=== PATIENT | male | born 1995 | race Caucasian/White ===

== ENCOUNTER 2021-06-09 16:42 | Inpatient (IN) | payer SELFPAY ==
--- NOTE | 2021-06-09 16:50 | ED_ITS ---
HPI - General Adult General: Chief complaint: Psychiatric Symptoms Stated complaint: MHE Time Seen by Provider: 06/09/21 16:43 History of Present Illness: HPI: [26]yo patient w/ hx of schizophrenia BIBA for acute onset of psychosis. 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 On arrival, the patient is AAOx3 and cooperative with my evaluation. No focal complaints of chest pain, shortness of breath, palpitations, N/V, focal GI/ complaints. Onset: unknown Duration: ongoing Location: home Severity: severe Associated symptoms: Deny chest pain, dyspnea, nausea, rash, palpitations or vomiting Review of Systems Const: Denies: fever(s) or chills Eyes: Denies: change in vision ENMT: Denies: mouth pain Card: Denies: chest pain or palpitations Resp: Denies: dyspnea or non-productive cough GI: Denies: abdominal pain, nausea, vomiting or diarrhea : Denies: dysuria Musc: Denies: extremity pain Skin/Breast: Denies: rash or new lesions Neuro: Denies: weakness in extremities Psych: Reports: mood swings, visual hallucinations and auditory hallucinations Medardo/Lymph: Denies: easy bruising PFSH ED PFSH: Medical History (Updated 06/09/21 @ 16:52 by Cheng Waldron MD) Schizophrenia Social History (Updated 06/09/21 @ 16:52 by Cheng Waldron MD) Smoking and tobacco status: former smoker Alcohol intake: unknown Substance/Drug Use: unknown Physical Exam Const: COMMON NORMALS: alert HENMT: COMMON NORMALS: atraumatic HEAD & SCALP: atraumatic MOUTH: moist mucous membranes not abnormal Eye: COMMON NORMALS: EOMs intact bilaterally and conjunctivae normal CONJUNCTIVA: Yes conjunctivae normal Neck/C-Spine: COMMON NORMALS: full ROM and supple Resp: COMMON NORMALS: normal respiratory effort and clear to auscultation bilaterally AUSCULTATION: clear to auscultation bilaterally Cardio: COMMON NORMALS: regular rate RATE: regular rate GI: COMMON NORMALS: Soft to palpation and non-tender PALPATION: Yes Soft to palpation Extremity: COMMON NORMALS: full ROM Neuro: SENSORIUM/ORIENTATION: Yes alert MOTOR EXAM: No Abnormal motor strength present and Other motor observations present (no focal motor deficits) Psych: COMMON NORMALS: negative for Normal thought process present MOOD & AFFECT: Yes elevated mood and Yes Labile affect present THOUGHT PROCESS: abnormal, incoherent and disorganized Course Vital Signs: Vital signs: Vital Signs Temperature 97.5 F L 06/09/21 17:02 Pulse Rate 97 06/09/21 17: Respiratory Rate 18 06/09/21 17:02 Blood Pressure 135/78 06/09/21 17:02 Pulse Oximetry 96 06/09/21 17:02 MDM - General Adult Medical Decision Making [26yo patient w/ hx of schizophrenia presenting for acute psychosis and inability to take care of self. Clinically the patient displays no overt toxidrome; they are well appearing, with low suspicion for toxic ingestion given history and exam. Symptoms unlikely 2/2 anemia, hypothyroidism, infection, or ICH. Workup: CBC, CMP, Lipase, salicylate/tylenol, TSH/free T4, CT head, UDS Lab findings: wnl, +marijuana in the urine, CT head negative [6:10pm] On reassessment, labs and workup wnl. Patient is hemodynamically stable with no acute medical complaints. Case discussed with psychiatric provider Dr. Goncalves at [facility] psych inpatient with recommendation for admission Disposition: Psych Lab Data : 06/09/21 17:26 06/09/21 17: Radiology Impressions Head CT 06/09/21 16:50 IMPRESSION: 1. No acute abnormality of the brain. 2. Findings consistent with an arachnoid cyst between the left temporal and left frontal lobes. Laboratory Results WBC 10.7 10^3/uL (4.0-10.0) H 06/09/21 17: RBC 5.68 10^6/uL (4.1-5.3) H 06/09/21 17: Hgb 16.8 g/dL (11.7-16.6) H 06/09/21: Hct 49.6 % (42.0-52.0) 06/09/21 17: MCV 87.3 fl (80-94) 06/09/21 17: MCH 29.6 pg (28.0-34.0) 06/09/21 17: MCHC 33.9 g/dL (30.0-36.0) 06/09/21 17: RDW 12.4 % (12.1-15.1) 06/09/21 17: Plt Count 226 10^3/cmm (130-400) 06/09/21 17: MPV 9.1 fL (7.4-10.4) 06/09/21 17: Neut % (Auto) 82.8 % 06/09/21 17: Lymph % (Auto) 9.2 % 06/09/21 17: Yuba % (Auto) 5.8 % 06/09/21 17: Eos % (Auto) 1.1 % 06/09/21 17: Baso % (Auto) 0.7 % 06/09/21 17: Neut # (Auto) 8.84 10^3/uL (1.8-7.7) H 06/09/21 17: Lymph # (Auto) 1.0 10^3/uL (0.8-4.8) 06/09/21 17: Yuba # (Auto) 0.6 10^3/uL (0.2-0.9) 06/09/21 17: Eos # (Auto) 0.1 10^3/uL (0.0-0.8) 06/09/21 17: Baso # (Auto) 0.1 10^3/uL (0.0-0.1) 06/09/21 17: Nucleated RBC % (auto) 0 % 06/09/21 17: Nucleated RBCs # 0.0 /100WBC 06/09/21 17: Sodium 141 mmol/L (136-145) 06/09/21 17: Potassium 3.7 mmol/L (3.5-5.1) 06/09/21 17: Chloride 102 mmol/L (98-107) 06/09/21 17: Carbon Dioxide 24 mmol/L (22-29) 06/09/21 17: Anion Gap 18.7 (5-19) 06/09/21 17: BUN 18 mg/dL (6-20) 06/09/21 17: Creatinine 1.2 mg/dL (0.7-1.2) 06/09/21 17: GFR Calculation 72.1 mL/min (90-130) L 06/09/21 17: Glucose 90 mg/dL (65-115) 06/09/21 17: Calculated Osmolality 293 mOsm/kg (285-295) 06/09/21 17: Calcium 10.3 mg/dL (8.5-10.5) 06/09/21 17: Total Bilirubin 0.8 mg/dL (0.15-1.2) 06/09/21: AST 12 U/L (0-40) 06/09/21 17: ALT 9 U/L (0-41) 06/09/21 17: Alkaline Phosphatase 96 IU/L (40-130) 06/09/21 17: Total Protein 7.5 g/dL (6.6-8.7) 06/09/21 17: Albumin 5.1 g/dL (3.5-5.2) 06/09/21: Globulin 2.4 g/dL (1.3-4.6) 06/09/21: Lipase 12 U/L (13-60) L 06/09/21 17: TSH 2.08 uIU/mL (0.27-4.20) 06/09/21 17: Free T4 1.46 ng/dL (0.82-1.77) 06/09/21: Salicylates 0.9 mg/dL (3-10) L 06/09/21 17:26 Urine Opiates Screen Negative ng/mL (Negative) 06/09/21 17:05 Acetaminophen < 5.0 ug/mL (10-30) L 06/09/21 17:26 Ur Barbiturates Screen Negative ng/mL (Negative) 06/09/21 17:05 Ur Phencyclidine Scrn Negative ng/mL (Negative) 06/09/21 17:05 Ur Amphetamines Screen Negative ng/mL (Negative) 06/09/21 17:05 U Benzodiazepines Scrn Negative ng/mL (Negative) 06/09/21 17:05 Urine Cocaine Screen Negative ng/mL (Negative) 06/09/21 17:05 U Marijuana (THC) Screen Positive ng/mL (Negative) H 06/09/21 17:05 Imaging Data Other Imaging: [facility]'s impression: [facility] [address] [facility] [place] [address] CT Scan Report Signed Patient: Peterson Pavon Unit #: [id number] : 1995 Age/Sex: 26 / M ADM Date: 06/09/21 Loc: ER Room/Bed: Attending Dr: Ordering Provider/Ordering MD: Cheng Waldron MD Date of Service: 06/09/21 Procedure(s): CT head wo con* [id number] Accession Number(s): [id number] Report Number: [id number] PROCEDURE INFORMATION: Exam: CT Head Without Contrast Exam date and time: 06/09/2021 4:50 PM Age: 26 years old Clinical indication: Altered mental status/memory loss; Other: Psychosis TECHNIQUE: Imaging protocol: Computed tomography of the head without contrast. Sagittal and coronal reformatted images were created and reviewed. Radiation optimization: All CT scans at this facility use at least one of these dose optimization techniques: automated exposure control; mA and/or kV adjustment per patient size (includes targeted exams where dose is matched to clinical indication); or iterative reconstruction. COMPARISON: No relevant prior studies available. RADIATION DOSE METRICS: Total DLP (mGy-cm): 921.71 FINDINGS: Brain: No acute intracranial hemorrhage. No acute infarct. Low-density extra-axial focus between the left temporal and left frontal lobes. Findings are consistent with an arachnoid cyst. This measures 2.4 x 2.2 x 2.1 cm (series 601, image 30 and series 2, image 20). No midline shift. No extra-axial fluid collections. Acosta-white matter differentiation is unremarkable. Cerebral ventricles: No hydrocephalus. Paranasal sinuses: Visualized paranasal sinuses are clear. Mastoid air cells: Visualized mastoid air cells are clear. Orbital cavity: No acute abnormality in the visualized orbits. Bones/joints: No acute fracture. Soft tissues: No acute abnormality of the extracranial soft tissues. CT/CT head wo con* [id number] IMPRESSION: 1. No acute abnormality of the brain. 2. Findings consistent with an arachnoid cyst between the left temporal and left frontal lobes. ? Dictated By: Veronica Benedict MD Signed By: Veronica Benedict MD Signed Date/Time: 06/09/21 175 DD/ 1650 Discharge Plan Discharge Patient Disposition: Admitted As Inpatient Clinical Impression: Psychosis Condition: Stable Coding Level of Care Code ED Settlement Worker for Kimberlyg Fwd Exam Comprehensive
[2021-06-09 17:02] VITALS: BP 135/78; PULSE 97; RESP 18; TEMP 36.4; O2SAT 96; BMI 23.7
[2021-06-09 17:40] LABS: Basophils # 0.1 10^3/uL (0.0-0.1); Basophils % 0.7 %; Eosinophils # 0.1 10^3/uL (0.0-0.8); Eosinophils % 1.1 %; Hematocrit 49.6 % (42.0-52.0); Hemoglobin 16.8 g/dL (11.7-16.6); Lymphocytes % 9.2 %; Mean Corpuscular HGB Conc 33.9 g/dL (30.0-36.0); Mean Corpuscular Hemoglobin 29.6 pg (28.0-34.0); Mean Corpuscular Volume 87.3 fl (80-94); Mean Platelet Volume 9.1 fL (7.4-10.4); Monocytes # 0.6 10^3/uL (0.2-0.9); Monocytes % 5.8 %; Neutrophils # 8.84 10^3/uL (1.8-7.7); Neutrophils % 82.8 %; Nucleated Red Blood Cells % 0 %; Platelet Count 226 10^3/cmm (130-400); Red Blood Count 5.68 10^6/uL (4.1-5.3); Red Cell Distribution Width 12.4 % (12.1-15.1); White Blood Count 10.7 10^3/uL (4.0-10.0)
[2021-06-09 18:06] LABS: Amphetamines Screen Urine Negative (Negative); Barbiturates Screen Urine Negative (Negative); Benzodiazepines Screen Urine Negative (Negative); Cocaine Screen Urine Negative (Negative); Opiate Screen Urine Negative (Negative); PCP Screen Urine Negative (Negative); THC Screen Urine Positive (Negative)
[2021-06-09] MEDS: LORazepam 2 mg/mL INJ 1 mL IM (18:10)
[2021-06-09 18:23] LABS: Alanine Aminotransferase 9 U/L (0-41); Albumin Level 5.1 g/dL (3.5-5.2); Alkaline Phosphatase 96 IU/L (40-130); Anion Gap 18.7 (5-19); Aspartate Amino Transferase 12 U/L (0-40); Blood Urea Nitrogen 18 mg/dL (6-20); Calcium 10.3 mg/dL (8.5-10.5); Carbon Dioxide 24 mmol/L (22-29); Chloride 102 mmol/L (98-107); Free T4 Free Thyroxine 1.46 ng/dL (0.82-1.77); Globulin 2.4 g/dL (1.3-4.6); Glomerular Filtration Rate 72.1 mL/min (90-130); Glucose 90 mg/dL (65-115); Lipase 12 U/L (13-60); Osmolality Calculated 293 mOsm/kg (285-295); Potassium 3.7 mmol/L (3.5-5.1); Salicylate 0.9 mg/dL (3-10); Sodium 141 mmol/L (136-145); Thyroid Stimulating Hormone 2.08 uIU/mL (0.27-4.20); Total Bilirubin 0.8 mg/dL (0.15-1.2); Total Protein 7.5 g/dL (6.6-8.7)
[2021-06-09 18:26] LABS: Acetaminophen < 5.0 ug/mL (10-30)
[2021-06-09 18:40] VITALS: BP 124/82; PULSE 82; RESP 13; O2SAT 97
[2021-06-09 19:41] VITALS: BP 119/74; PULSE 104; RESP 18; O2SAT 98
[2021-06-09] MEDS: OLANZapine 5 mg ODT PO (21:31)
[2021-06-09 22:00] VITALS: BP 119/74; PULSE 104; RESP 18; TEMP 36.4
--- NOTE | 2021-06-10 02:00 | PC.ADMIT ---
HOMELESS Admission Note:HPI: [26]yo patient w/ hx of schizophrenia BIBA for acute onset of psychosis. 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 On arrival, the patient is AAOx3 and cooperative with my evaluation. No focal complaints of chest pain, shortness of breath, palpitations, N/V, focal GI/ complaints. The patient,Peterson Pavon,26 y/o, was given written information regarding hospital policies, unit procedures and contact persons. Patient reports auditory hallucinations, history of schizophrenia, history of substance abuse. Patient denies SI, HI. Reports I am trying to figure out which Spirit the voices are. Patient has pressured speech, rambling, but cooperative. States he has been emotionally abused by the music industry, they are Satan and do not believe in Dru, they mess Bible versus up and say they are Christians . Patient's smoking status: former smoker. Vital Signs - 8 hr 06/09/21 18:40 06/09/21 19:41 06/09/21 22:00 Temperature 97.5 F L Pulse Rate 82 104 H 104 H Respiratory Rate 13 18 18 Blood Pressure 124/82 119/74 119/74 Pulse Oximetry 97 98
[2021-06-10 06:00] VITALS: RESP 16
[2021-06-10] MEDS: sertraline 50 mg Tablet 25 MG PO (10:18)
[2021-06-10 14:00] VITALS: BP 117/67; PULSE 76; RESP 18; TEMP 36.5; O2SAT 100
--- NOTE | 2021-06-10 14:36 | P.NPUHP_ITS ---
Providers/Chief Complaint Admitting Physician: Jose Goncalves MD Chief Complaint: MHE HPI NPU History of Present Illness Peterson Pavon is a 26 year old male who presented to the emergency department with the following report: Chief complaint: Psychiatric Symptoms Stated complaint: MHE Time Seen by Provider: 06/09/21 16:43 History of Present Illness:?? HPI: [26]yo patient w/ hx of schizophrenia BIBA for acute onset of psychosis. 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 Patient was belligerent with police officers and attempted to attack police superintendent with snow. On arrival, the patient is AAOx3 and cooperative with my evaluation. No focal complaints of chest pain, shortness of breath, palpitations, N/V, focal GI/ complaints. Onset: unknown Duration: ongoing Location: home Severity: severe Associated symptoms: Deny chest pain, dyspnea, nausea, rash, palpitations or vomiting He was admitted to the neuropsychiatric unit for definitive treatment of those issues. He presents today appearing quite disturbed and endorsing irritability and needing help with medication to calm down. He did take some Zyprexa Zydis for that end. He was very amped during the conversation and initially seemed to be unwilling to engage in psychopharmacology long-term. His report was that there was some issue between him and the pentecostal and that he is aware of issues that they have including the illuminati. He reports that somehow in the process he was diagnosed with schizophrenia but that would be suffering from is a very intense spiritual problem and less a psychiatric problem. He expressed anger at the pentecostal because when he feels he has tried to talk to them about what he needs in the spiritual discoveries made they have supported him only by suggesting that he go to a psychiatric facility and get help. He endorsed being unaware if there is anything that can be done to help him. And because of the level of spiritual problems that he was unsure that anything other than a very strong medication could have a chance to help him. He spent most of the interview referring to different scriptures and sharing their meaning and any id eas or delusions of reference that he had surrounding those scriptures. His heavy focus on islam connectivity made it difficult for him to break away to answer questions of his personal history with any consistency. He did share that at times he got so worked up from the pentecostal and the thoughts that he was having that he did drink to cope with the mental anguish. Meds NPU Home Medications Medication Instructions Recorded Confirmed Last Taken Type calcipotriene 0.005 % topical See Rx Instructions .ROUTE .COMPLEX 06/09/21 06/09/21 Unknown History cream (Dovonex) sertraline 25 mg tablet 25 mg PO DAILY 06/09/21 06/09/21 Unknown History Allergies Allergy/AdvReac Type Severity Reaction Status Date / Time No Known Allergies Allergy Verified 06/10/21 17:24 PFSH NPU PFSH: Medical History (Updated 06/11/21 @ 07:18 by Jose Goncalves MD) Schizophrenia Social History (Updated 06/09/21 @ 16:52 by Cheng Waldron MD) Smoking and tobacco status: former smoker Alcohol intake: unknown Substance/Drug Use: unknown Mental Status Exam MSE Comments: This is a tall slender well-nourished well-developed white male in hospital scrubs with limited grooming but adequate eye contact. No abnormal movements except for mild psychomotor agitation. Somewhat cooperative with exam in mild to moderate distress. Speech was decreased rate and volume. Mood described as stressed out, affect congruent and guarded. Thought process organized at moments but disorganized and hyper religiously focused at others. Thought content: Patient denied suicidal or homicidal ideation, there were no delusions reported but clear hyper islam, paranoid and persecutory delusions exist, he alluded to some auditory hallucinations and or other comments that suggested some visual hallucinations. Attention and concentration were impaired and memory appeared unreliable but none were formally tested. He is alert and oriented times person and place. Insight and judgment are impaired, impulse control impaired. Vitals/I&O/Wt Last Vital Signs Temp 97.7 F 06/10/21 14:00 Pulse 76 06/10/21 14:00 Resp 18 06/10/21 14:00 BP 117/67 06/10/21 14:00 Pulse Ox 100 06/10/21 14:00 Weight last 48 hrs Weight 81.647 kg Data NPU : 06/09/21 17:26 06/09/21 17:26 A&P Assessment and plan (1) Psychosis: Status: Acute (2) History of schizophrenia: Status: Acute (3) Alcohol use disorder: Status: Acute (4) Cannabis abuse: Status: Acute Plan This is a 26-year-old white male with a reported history of schizophrenia and possible addiction issues who presents appearing psychotic but open to a trial of Invega. 1. Continue current medication. 2. Continue every 15 minute checks for safety. 3. Encourage individual, group and milieu therapies. 4. Encourage sober living treatment after discharge at the highest level of care to which he is willing to commit. Attestations NPU Medical Necessity Statement*: Inpatient hospitalization is medically necessary and the clinically appropriate intervention at this time. We will monitor medication to make changes as indicated. Patient will be in the hospital for over two midnights. Likely length of stay 4-6 days. Coding Level of Care Code Acute Bobtail Driver for Naye Keene Diagnoses Psychosis F29 History of schizophrenia Z86.59 Alcohol use disorder Cannabis abuse F12.10
[2021-06-10] MEDS: paliperidone ER 6 mg Tablet PO (17:28)
[2021-06-10] MEDS: OLANZapine 5 mg ODT PO (20:47)
[2021-06-10 22:00] VITALS: BP 125/88; PULSE 75; RESP 18; TEMP 36.6; O2SAT 98
[2021-06-11] MEDS: OLANZapine 5 mg ODT PO ×2 (04:05→20:30)
--- NOTE | 2021-06-11 04:57 | PC.NURSE ---
0405 A loud noise was heard coming from the patients room. Upon arrival to the room the patient was curled up in a position shaking under a blanket. When this mortgage loan underwriter asked the patient was wrong, he stated, That woman. I can't get her out of me. Her soul is trying to get me. She keeps yelling at me that I am no good. I can't keep hearing her voice. No one in the mormonism would believe me. I had to leave the mormonism to try to get away from them all. The Holy Spirit is in me not her. The medicine is not helping me. She won't let me be. He kept rambling with pressured speech on and on about this woman with intermittent words about God and the Holy Spirit. Zyprexa was offerred and accepted. When given the medication he again started rambling. This mortgage loan underwriter listened and then calmly shut down the talking. The patient curled up on his bed covered with his blanket.
[2021-06-11 06:00] VITALS: BP 92/59; PULSE 62; RESP 17; TEMP 36.2; O2SAT 95
[2021-06-11] MEDS: paliperidone ER 6 mg Tablet PO (09:05)
[2021-06-11] MEDS: sertraline 50 mg Tablet 25 MG PO (09:05)
--- NOTE | 2021-06-11 11:40 | P.NPUPN_ITS ---
Subjective NPU Subjective: Interval history: Patient presents today reporting that he is fine. He was much less animated and energetic today. He reported that he is not have any problems with the medication but he was fairly irritable and seeming like he did not want to answer questions. He denied having any new issues at this time. Medications: Medication Review Details: This is a tall slender well-nourished well-developed white male in hospital scrubs with limited grooming but adequate eye contact. No abnormal movements except for mild psychomotor agitation. Somewhat cooperative with exam in mild distress. Speech was decreased rate and volume. Mood described as okay, affect irritable and guarded. Thought process organized at moments but disorganized and hyper religiously focused at others. Thought content: Patient denied suicidal or homicidal ideation, there were no delusions reported but hyper restoration, paranoid and persecutory delusions exist, he alluded to some auditory hallucinations and or other comments that suggested some visual hallucinations. Attention and concentration were impaired and memory appeared unreliable but none were formally tested. He is alert and oriented times person and place. Insight and judgment are impaired, impulse control impaired. Vitals/I&O/Wt Last Vital Signs Temp 97.1 F L 06/11/21 06:00 Pulse 62 06/11/21 06:00 Resp 17 06/11/21 06:00 BP 92/59 06/11/21 06:00 Pulse Ox 95 06/11/21 06:00 Weight last 48 hrs Weight 75.75 kg Weight 81.647 kg Data NPU : 06/09/21 17:26 06/09/21 17:26 A&P Assessment and plan (1) Cannabis abuse: Status: Acute (2) Alcohol use disorder: Status: Acute (3) History of schizophrenia: Status: Acute (4) Psychosis: Status: Acute Plan This is a 26-year-old white male with a reported history of schizophrenia and possible addiction issues who presents appearing psychotic but open to a trial of Invega. 1.? Continue current medication. 2.? Continue every 15 minute checks for safety. 3.? Encourage individual, group and milieu therapies. 4.? Encourage sober living treatment after discharge at the highest level of care to which he is willing to commit. Attestations NPU Medical Necessity Statement*: Inpatient hospitalization is medically necessary and the clinically appropriate intervention at this time. We will monitor medication to make changes as indicated. Likely length of stay 4-6 days. Coding Level of Care Code Acute Supervisor Securities Vault for Chg Fwd Diagnoses Cannabis abuse F12.10 Alcohol use disorder History of schizophrenia Z86.59 Psychosis F29
[2021-06-11 14:00] VITALS: BP 110/66; PULSE 71; RESP 16; TEMP 36.6; O2SAT 96
[2021-06-11 20:19] VITALS: BP 148/93; PULSE 70; RESP 19; TEMP 37; O2SAT 98
[2021-06-12 06:00] VITALS: BP 119/84; PULSE 91; RESP 20; TEMP 36.8; O2SAT 97
[2021-06-12] MEDS: paliperidone ER 6 mg Tablet PO (09:22)
[2021-06-12] MEDS: sertraline 50 mg Tablet 25 MG PO (09:22)
[2021-06-12 14:00] VITALS: BP 126/95; PULSE 110; RESP 20; TEMP 36.4; O2SAT 95
--- NOTE | 2021-06-12 17:50 | W.PM.NPUPNS ---
Subjective NPU Subjective: Interval history: Patient presented today reporting that he is feeling a little better. He denied any problems with the medication at this point. He was fairly all over the place talking about his mother not allowing him to stay with her and him being homeless but then trying to get discharged but then later saying that he did know where he would go because he is homeless. We had a long conversation about trying to hopefully stabilize him with the medication and maybe use the social work team to help him find some options for where he is going to live when he leaves the hospital. He was lobbying for ending the 96-hour hold early but agreed that he would stay on top more while we figure these things out. Mental Status Exam MSE Comments: This is a tall slender well-nourished well-developed white male in hospital scrubs with limited grooming but adequate eye contact. No abnormal movements except for mild psychomotor agitation. Somewhat cooperative with exam in mild distress. Speech was decreased rate and volume. Mood described as a little better, affect congruent but guarded. Thought process more organized and less disorganized and hyper religiously focused at others. Thought content: Patient denied suicidal or homicidal ideation, there were no delusions reported but occasional hyper restorationist, paranoid and persecutory delusions are still noted, he alluded to some auditory hallucinations and or other comments that suggested some visual hallucinations. Attention and concentration were impaired and memory appeared more reliable but none were formally tested. He is alert and oriented times person and place. Insight and judgment are impaired, impulse control impaired. Vitals/I&O/Wt Last Vital Signs Temp 97.7 F 06/12/21 20:09 Pulse 88 06/12/21 20:09 Resp 20 H 06/12/21 20:09 BP 151/68 06/12/21 20:09 Pulse Ox 99 06/12/21 20:09 Weight last 48 hrs Weight 75.75 kg Data NPU : 06/09/21 17:26 06/09/21 17:26 A&P Assessment and plan (1) Cannabis abuse: Status: Acute (2) Alcohol use disorder: Status: Acute (3) History of schizophrenia: Status: Acute (4) Psychosis: Status: Acute Plan This is a 26-year-old white male with a reported history of schizophrenia and possible addiction issues who presents appearing psychotic but open to a trial of Invega. 1.? Continue current medication. Will encourage transition to Invega Sustenna. 2.? Continue every 15 minute checks for safety. 3.? Encourage individual, group and milieu therapies. 4.? Encourage sober living treatment after discharge at the highest level of care to which he is willing to commit. Attestations NPU Medical Necessity Statement*: Inpatient hospitalization is medically necessary and the clinically appropriate intervention at this time. We will monitor medication to make changes as indicated. Likely length of stay 3-5 days. Coding Level of Care Code Acute Marketing Manager for [facility] Diagnoses Cannabis abuse F12.10 Alcohol use disorder History of schizophrenia Z86.59 Psychosis F29
[2021-06-12] MEDS: trazodone 50 mg Tablet PO (19:45)
[2021-06-12 20:09] VITALS: BP 151/68; PULSE 88; RESP 20; TEMP 36.5; O2SAT 99
[2021-06-13] MEDS: OLANZapine 5 mg ODT PO ×2 (00:32→16:54)
--- NOTE | 2021-06-13 01:51 | PC.NURSE ---
Patient took Trazodone 50mg po to help him sleep. At 00:30 patient was still awake. At 01:30 patient came to the nurse's station asking for water. When asked if he could sleep he responded, no. He said the voices will not let me sleep. 00:32 Zyprexa 5 mg po given to calm him and the voices. Now the patient is resting comfortably.
--- NOTE | 2021-06-13 04:33 | PC.NURSE ---
At this time the patient is sleeping. It took a couple of hours for him to fall asleep even with the Trazodone followed by the Zyprexa.
[2021-06-13 06:00] VITALS: RESP 18
[2021-06-13] MEDS: paliperidone ER 6 mg Tablet PO (08:16)
[2021-06-13] MEDS: sertraline 50 mg Tablet 25 MG PO (08:16)
[2021-06-13 14:00] VITALS: BP 117/76; PULSE 113; RESP 18; TEMP 36.8; O2SAT 98
--- NOTE | 2021-06-13 17:42 | W.PM.NPUPNS ---
Subjective NPU Subjective: Interval history: Patient presents today reporting that he is really getting antsy being here in the hospital. He denies any lethality but also identifies that he does not have a clear place to go but is working with the social work team for options. He reported that his mom is going to bring his ID and such so that he might have the option of being in a senior living. He reports that he certainly feels calmer and we both agreed and discussed that the medication is likely being very helpful. We discussed the possibility of a long-acting injectable which he was somewhat resistant to versus ambivalent. We discussed the possibility of discharge in the next 48 hours as well as the chance for 21-day hold which he was not happy about. Mental Status Exam MSE Comments: This is a tall slender well-nourished well-developed white male in hospital scrubs with adequate grooming and eye contact. No abnormal movements except for mild psychomotor retardation. More cooperative with exam in mild distress. Speech was decreased rate and volume. Mood described as a little better, affect congruent but guarded. Thought process more organized. Thought content: Patient denied suicidal or homicidal ideation, there were no delusions reported and no hyper christianity, paranoid and persecutory delusions are noted during interview. He did not report auditory or visual hallucinations. Attention and concentration were improving and memory appeared more reliable but none were formally tested. He is alert and oriented times person and place. Insight and judgment are limited, impulse control impaired. Vitals/I&O/Wt Last Vital Signs Temp 97.6 F 06/13/21 21:14 Pulse 93 06/13/21 21:14 Resp 20 H 06/13/21 21:14 BP 119/83 06/13/21 21:14 Pulse Ox 95 06/13/21 21:14 Data NPU : 06/09/21 17:26 06/09/21 17:26 A&P Assessment and plan (1) Cannabis abuse: Status: Acute (2) Alcohol use disorder: Status: Acute (3) History of schizophrenia: Status: Acute (4) Psychosis: Status: Acute Plan This is a 26-year-old white male with a reported history of schizophrenia and possible addiction issues who presents appearing psychotic but open to a trial of Invega. 1.? Continue current medication.? Will encourage transition to Invega Sustenna. 2.? Continue every 15 minute checks for safety. 3.? Encourage individual, group and milieu therapies. 4.? Encourage sober living treatment after discharge at the highest level of care to which he is willing to commit. Attestations NPU Medical Necessity Statement*: Inpatient hospitalization is medically necessary and the clinically appropriate intervention at this time. We will monitor medication to make changes as indicated. Likely length of stay 2-4 days. Coding Level of Care Code Acute Wildlife Enforcement Major for [facility]ulu [facility] Diagnoses Cannabis abuse F12.10 Alcohol use disorder History of schizophrenia Z86.59 Psychosis F29
[2021-06-13] MEDS: trazodone 50 mg Tablet PO (20:43)
[2021-06-13 21:14] VITALS: BP 119/83; PULSE 93; RESP 20; TEMP 36.4; O2SAT 95
[2021-06-14 06:00] VITALS: BP 122/75; PULSE 108; RESP 17; TEMP 36.9; O2SAT 98
[2021-06-14] MEDS: sertraline 50 mg Tablet 25 MG PO (08:20)
[2021-06-14] MEDS: paliperidone ER 6 mg Tablet PO (08:20)
[2021-06-14 14:00] VITALS: BP 111/70; PULSE 119; RESP 18; TEMP 36.7; O2SAT 96
--- NOTE | 2021-06-14 18:56 | P.NPUPN_ITS ---
Subjective NPU Subjective: Interval history: Patient presents today reporting that he is feeling a little better. His mother came by and reported that she has a plan to assist him but he is willing to follow through with the divorce ongoing to a family member's house where she can check in on him. Continue to discuss the plan for the injection but he seemed to be more reluctant and feeling as if the fact that his CT scan is back but I find that he did have any problems demonstrating his very impaired insight. Mental Status Exam MSE Comments: This is a tall slender well-nourished well-developed white male in hospital scrubs with adequate grooming and eye contact. No abnormal movements except for mild psychomotor retardation.? More cooperative with exam in mild distress. Speech was decreased rate and volume. Mood described as a little better, affect congruent but guarded. Thought process more organized. Thought content: Patient denied suicidal or homicidal ideation, there were no delusions reported and no hyper zoroastrian, paranoid and persecutory delusions are noted during interview.? He did not report auditory or visual hallucinations. Attention and concentration were improving and memory appeared more reliable but none were formally tested. He is alert and oriented times person and place. Insight and judgment are impaired, impulse control impaired. Vitals/I&O/Wt Last Vital Signs Temp 98 F 06/14/21 22:00 Pulse 90 06/14/21 22:00 Resp 17 06/14/21 22:00 BP 121/77 06/14/21 22:00 Pulse Ox 95 06/14/21 22:00 Data NPU : 06/09/21 17:26 06/09/21 17:26 A&P Assessment and plan (1) Cannabis abuse: Status: Acute (2) Alcohol use disorder: Status: Acute (3) History of schizophrenia: Status: Acute (4) Psychosis: Status: Acute Plan This is a 26-year-old white male with a reported history of schizophrenia and possible addiction issues who presents appearing psychotic but open to a trial of Invega. 1.? Continue current medication.? Will encourage transition to Invega Sustenna. 2.? Continue every 15 minute checks for safety. 3.? Encourage individual, group and milieu therapies. 4.? Encourage sober living treatment after discharge at the highest level of care to which he is willing to commit. Attestations NPU Medical Necessity Statement*: Inpatient hospitalization is medically necessary and the clinically appropriate intervention at this time. We will monitor medication to make changes as indicated. Likely length of stay 1-3 days. Coding Level of Care Code Acute Integrated Logistics Support Manager for [facility] Fwd Diagnoses Cannabis abuse F12.10 Alcohol use disorder History of schizophrenia Z86.59 Psychosis F29
[2021-06-14] MEDS: OLANZapine 5 mg ODT PO (20:33)
--- NOTE | 2021-06-14 21:55 | PC.NURSE ---
Patient wanted medication to help him sleep. Zyprexa worked very well last night so he wanted the same thing. Zyprexa was given
[2021-06-14 22:00] VITALS: BP 121/77; PULSE 90; RESP 17; TEMP 36.6; O2SAT 95
[2021-06-15 06:00] VITALS: BP 115/74; PULSE 96; RESP 20; TEMP 36.4; O2SAT 97
[2021-06-15] MEDS: paliperidone ER 6 mg Tablet PO (08:51)
[2021-06-15] MEDS: sertraline 50 mg Tablet 25 MG PO (08:51)
--- NOTE | 2021-06-15 09:08 | PC.NURSE ---
PATIENTS MOM HERE TO PICK PATIENT UP. REPORTS THAT THIS PATIENTS DAD WAS BELIEVED TO HAVE SCHIZOPHRENIA. SHE HIM WHEN PATIENT WAS 3. STATES SHE FEELS HER SON IS TUENING INTO HIM. MOM IS GLAD HE IS GOING HOME WITH HER. SHE HOPES THAT HE DOES WELL
[2021-06-15] MEDS: paliperidone palmitate 234 mg Syringe IM (09:54)
--- NOTE | 2021-06-15 10:02 | W.PM.NPUDCS ---
Diagnoses at Discharge Discharge Diagnosis (1) Cannabis abuse: Status: Acute (2) Alcohol use disorder: Status: Acute (3) History of schizophrenia: Status: Acute (4) Psychosis: Status: Acute Reason for Visit Reason for Visit: MHE Brief History: History of Present Illness Peterson Pavon is a 26 year old male who presented to the emergency department with the following report: Chief complaint: P sychiatric Symptom s Stated complaint : MHE Time Seen by Provider: 2 16:43? ? History of Present Illness:??? HPI: [26]yo patien t w/ hx of schizop hrenia BIBA for ac talha onset of psych osis. Patient rece ived a wellness ch blake from police to day and was found to be severely con fused and claiming , the music indus try is controlled by Satan. Patient was belligerent w ith police superintendent s and attempted to attack police off icer with snow. On arrival, the roseann ent is AAOx3 and c ooperative with my evaluation. No fo piper complaints of chest pain, shortn ess of breath, pal pitations, N/V, fo piper GI/ complain ts. Onset: unknown Duration: ongoing Location: home Se verity: severe Ass ociated symptoms: Deny chest pain, d yspnea, nausea, ra sh, palpitations o r vomiting He was admitted to the neuropsychiatric unit for definitive treatment of those issues. He presents today appearing quite disturbed and endorsing irritability and needing help with medication to calm down. He did take some Zyprexa Zydis for that end. He was very amped during the conversation and initially seemed to be unwilling to engage in psychopharmacology long-term. His report was that there was some issue between him and the hindu and that he is aware of issues that they have including the illuminati. He reports that somehow in the process he was diagnosed with schizophrenia but that would be suffering from is a very intense spiritual problem and less a psychiatric problem. He expressed anger at the hindu because when he feels he has tried to talk to them about what he needs in the spiritual discoveries made they have supported him only by suggesting that he go to a psychiatric facility and get help. He endorsed being unaware if there is anything that can be done to help him. And because of the level of spiritual problems that he was unsure that anything other than a very strong medication could have a chance to help him. He spent most of the interview referring to different scriptures and sharing their meaning and any ideas or delusions of reference that he had surrounding those scriptures. His heavy focus on uatsdin connectivity made it difficult for him to break away to answer questions of his personal history with any consistency. He did share that at times he got so worked up from the hindu and the thoughts that he was having that he did drink to cope with the mental anguish. Hospital Course Hospital Course He very slowly acclimated to the individual, group and milieu therapies provided. He did eventually accept medication and ultimately with coaxing from his mother for the opportunity to have a place to go and was safe he did except a long-acting injectable and showed significant improvement during the hospitalization. At the time of discharge he was able to contract for safety outside the hospital. During the hospitalization, patient had routine laboratory studies which were within normal limits except for few outliers. Additionally there was a general medical evaluation which was also within normal limits and revealed no new acute processes. Discharge Summary: At the time of discharge, lethality was denied and psychosis was resolving. Mood and anxiety were well managed. Patient endorsed a plan to avoid all drugs of abuse and follow-up with the aftercare recommendations of the treatment team. Patient was evaluated and deemed to be absent credible lethality, and had achieved the maximum benefit from an inpatient hospitalization, so was discharged. Mental Status Exam MSE Comments: This is a tall slender well-nourished well-developed white male in hospital scrubs with adequate grooming and eye contact. No abnormal movements except for mild psychomotor retardation.? More cooperative with exam in mild distress. Speech was decreased rate and volume. Mood described as a little better, affect congruent and less guarded. Thought process more organized. Thought content: Patient denied suicidal or homicidal ideation, there were no delusions reported and no hyper uatsdin, paranoid and persecutory delusions are noted during interview.? He did not report auditory or visual hallucinations. Attention and concentration were improving and memory appeared more reliable but none were formally tested. He is alert and oriented times person and place. Insight and judgment are limited, impulse control impaired. Discharge Data Studies Completed and Pending: Completed Studies During Hospitalization Category Date Time Status CT head wo con* 7 [id number] Urgent Cat Scan 06/09/21 16:50 Completed Radiology Impressions Head CT 06/09/21 16:50 IMPRESSION: 1. No acute abnormality of the brain. 2. Findings consistent with an arachnoid cyst between the left temporal and left frontal lobes. Laboratory Results WBC 10.7 10^3/uL (4.0 -10.0) H 06/09/21 17: RBC 5.68 10^6/uL (4.1 -5.3) H 06/09/21 17: Hgb 16.8 g/dL (11.7-1 6.6) H 06/09/21 17: Hct 49.6 % (42.0-52.0 ) 06/09/21 17: MCV 87.3 fl (80-94) 06/09/21 17: MCH 29.6 pg (28.0-34. 0) 06/09/21: MCHC 33.9 g/dL (30.0-3 6.0) 06/09/21: RDW 12.4 % (12.1-15.1 ) 06/09/21: Plt Count 226 10^3/cmm (130 -400) 06/09/21 17: MPV 9.1 fL (7.4-10.4) 06/09/21 17: Neut % (Auto) 82.8 % 06/09/21 17: Lymph % (Auto) 9.2 % 06/09/21 17: [place] % (Auto) 5.8 % 06/09/21: Eos % (Auto) 1.1 % 06/09/21: Baso % (Auto) 0.7 % 06/09/21: Neut # (Auto) 8.84 10^3/uL (1.8 -7.7) H 06/09/21 17: Lymph # (Auto) 1.0 10^3/uL (0.8- 4.8) 06/09/21: [place] # (Auto) 0.6 10^3/uL (0.2- 0.9) 06/09/21 17: Eos # (Auto) 0.1 10^3/uL (0.0- 0.8) 06/09/21: Baso # (Auto) 0.1 10^3/uL (0.0- 0.1) 06/09/21 17: Nucleated RBC % (a uto) 0 % 06/09/21 17: Nucleated RBCs # 0.0 /100WBC 06/09/21 17: Sodium 141 mmol/L (136-1 45) 06/09/21 17: Potassium 3.7 mmol/L (3.5-5 .1) 06/09/21 17: Chloride 102 mmol/L (98-10 7) 06/09/21 17: Carbon Dioxide 24 mmol/L (22-29) 06/09/21 17: Anion Gap 18.7 (5-19) 06/09/21 17: BUN 18 mg/dL (6-20) 06/09/21: Creatinine 1.2 mg/dL (0.7-1. 2) 06/09/21 17: GFR Calculation 72.1 mL/min (90-1 30) L 06/09/21 17: Glucose 90 mg/dL (65-115) 06/09/21 17: Calculated Osmolal ity 293 mOsm/kg (285- 295) 06/09/21 17: Calcium 10.3 mg/dL (8.5-1 0.5) 06/09/21: Total Bilirubin 0.8 mg/dL (0.15-1 .2) 06/09/21 17: AST 12 U/L (0-40) 06/09/21 17: ALT 9 U/L (0-41) 06/09/21 17: Alkaline Phosphata se 96 IU/L (40-130) 06/09/21 17: Total Protein 7.5 g/dL (6.6-8.7 ) 06/09/21 17: Albumin 5.1 g/dL (3.5-5.2 ) 06/09/21 17: Globulin 2.4 g/dL (1.3-4.6 ) 06/09/21: Lipase 12 U/L (13-60) L 06/09/21 17: TSH 2.08 uIU/mL (0.27 -4.20) 06/09/21 17: Free T4 1.46 ng/dL (0.82- 1.77) 06/09/21: Salicylates 0.9 mg/dL (3-10) L 06/09/21 17:26 Urine Opiates Scre en Negative ng/mL (N egative) 06/09/21 17:05 Acetaminophen < 5.0 ug/mL (10-3 0) L 06/09/21 17:26 Ur Barbiturates Sc reen Negative ng/mL (N egative) 06/09/21 17:05 Ur Phencyclidine S crn Negative ng/mL (N egative) 06/09/21 17:05 Ur Amphetamines Sc reen Negative ng/mL (N egative) 06/09/21 17:05 U Benzodiazepines Scrn Negative ng/mL (N egative) 06/09/21 17:05 Urine Cocaine Scre en Negative ng/mL (N egative) 06/09/21 17:05 U Marijuana (THC) Screen Positive ng/mL (N egative) H 06/09/21 17:05 Vitals: Last Vital Signs Temp 97.5 F L 06/15/21 06:00 Pulse 96 06/15/21 06:00 Resp 20 H 06/15/21 06:00 BP 115/74 06/15/21 06:00 Pulse Ox 97 06/15/21 06:00 Discharge Plan Discharge Patient Disposition: Home Condition: Stable Prescriptions: New Invega Sustenna 156 mg/mL syringe 156 mg IM Q30D 30 Days Qty: 1 2RF Rx Instructions: Next injection 06/22/21 IM deltoid. Then 07/20/21 IM and every 30 days after. sertraline 50 mg Tablet 25 mg PO DAILY 30 Days Qty: 30 1RF Continued Dovonex 0.005 % cream See Rx Instructions .ROUTE .COMPLEX 0RF Rx Instructions: apply to affected area sertraline 25 mg tablet 25 mg PO DAILY 30 Days Qty: 30 1RF Discharge Orders: Discharge Order (Routine); Ordered 06/15/21 Ordered By: Jose Goncalves Referrals: [facility]-Medication Provider [Other] - 06/16/21 11:00 am [facility]-therapy [Other] - 06/16/21 10:15 am ([facility] [Other] Discharge Diet: Regular Discharge Activity: Resume usual activity Patient Instructions: Opioid Safety Discharge Attestations NPU Time Spent in Discharge Care*: less than 30 min Specific Discharge Activities: Specific discharge activities: educating patient, discussing with case management specialist/social workers/dc planners, documenting/other paperwork and evaluating patient/reviewing data Coding Level of Care Code Acute [facility] FW DC note Diagnoses Cannabis abuse F12.10 Alcohol use disorder History of schizophrenia Z86.59 Psychosis F29
[2021-06-15 10:13] VITALS: BP 115/74; PULSE 96; RESP 20; TEMP 36.4; O2SAT 97
== END 2021-06-15 10:34 | disposition home or self-care (01) | DRG 885 ==
LOC: ER 17:18 → NP 06-10 08:19
PROVIDERS: Admitting Provider Psychiatry & Neurology Psychiatry; Emergency Provider Emergency Medicine; Visit Provider Psychiatry & Neurology Psychiatry
DX: F20.9 Schizophrenia, unspecified (principal); Z87.891 Personal history of nicotine dependence; Z72.89 Other problems related to lifestyle; F12.10 Cannabis abuse, uncomplicated
CPT/HCPCS: 70450; 80053; 80306; 80307; 83690; 84439; 84443; 85025; 96372; 97150; 97165; 99285; J2060

== ENCOUNTER 2021-10-09 06:29 | Inpatient (IN) | payer MEDICAID, SELFPAY ==
[2021-10-09 06:36] VITALS: BP 136/87; PULSE 63; RESP 18; TEMP 36.6; O2SAT 100; BMI 25.0
[2021-10-09 06:42] VITALS: BP 129/85; PULSE 71; RESP 14; O2SAT 100
--- NOTE | 2021-10-09 07:12 | W.ED.PSYCHS ---
HPI - Psych General: Chief Complaint: Psychiatric Symptoms Stated Complaint: MHE Time Seen by Provider: 10/09/21 06:53 Source: patient Mode of arrival: ambulatory Limitations: no limitations History of Present Illness: 26-year-old male presents emergency room complaining of suicidal ideation auditory hallucinations. He has a history of suicidal ideation in the past. He has a history of schizophrenia as well. He has some random tangential thoughts. Some lutheran leanings regarding his behavior. He also reports that he has nowhere to go. Last month he was hospitalized for similar type issues discharged home with oral medications but never had this filled so he not been taking anything. MD complaint: suicidal ideation and feels depressed Onset (ago): unknown Duration: constant and changing over time History of same: Yes Relieving factors: none Exacerbating factors: none Context: not taking psychiatric medications Associated symptoms: Reports auditory hallucinations, suicidal ideation and racing thoughts; Deny visual hallucinations, delusions, depression or homicidal ideation Treatments prior to arrival: none If self harm: admits thoughts of self harm Review of Systems General: Reports: ROS unobtainable due to mental status Psych: Reports: auditory hallucinations and suicidal ideation; Denies: depression, visual hallucinations or homicidal ideation [facility] ED PFSH: Medical History Schizophrenia Social History Smoking and tobacco status: former smoker Alcohol intake: unknown Physical Exam Const: COMMON NORMALS: no acute distress GENERAL APPEARANCE: cooperative and comfortable ORIENTATION/CONSCIOUSNESS: Yes awake, Yes oriented to person, Yes oriented to place and Yes oriented to time HENMT: COMMON NORMALS: normocephalic, atraumatic and hearing grossly normal bilaterally HEAD & SCALP: normocephalic and atraumatic Neck/C-Spine: COMMON NORMALS: no JVD Resp: COMMON NORMALS: normal respiratory effort, No retractions, No use of accessory muscles and clear to auscultation bilaterally AUSCULTATION: clear to auscultation bilaterally Cardio: COMMON NORMALS: no JVD, regular rate, regular rhythm and No murmurs present (Cardio) RATE: regular rate RHYTHM: regular rhythm GI: COMMON NORMALS: Soft to palpation and No hepatosplenomegaly present AUSCULTATION: Yes normoactive bowel sounds PALPATION: Yes Soft to palpation, No Tenderness to palpation present (GI), No Guarding due to palpation present (GI) and Yes No hepatosplenomegaly present Extremity: COMMON NORMALS: normal to inspection, capillary refill normal, no clubbing, cyanosis or edema, no calf tenderness and no pedal edema Neuro: SENSORIUM/ORIENTATION: Yes oriented to person, Yes oriented to place and Yes oriented to time Psych: THOUGHT CONTENT: No delusions Skin: COMMON NORMALS: no rashes or lesions noted GENERAL SKIN EXAM: no rashes or lesions noted Course Vital Signs: Vital signs: Vital Signs Temperature 97.8 F 10/09/21 06:36 Pulse Rate 71 10/09/21 06:42 Respiratory Rate 14 10/09/21 06:42 Blood Pressure 129/85 10/09/21 06:42 Pulse Oximetry 100 10/09/21 06:42 MDM - Psych Medical Decision Making Patient acutely psychotic has been some auditory hallucinations. He states he is suicidal but gives no specific plan. Discussed Dr. Goncalves will admit. Medical Records I reviewed the patient's medical records. Lab Data I reviewed the patient's lab results. : 10/09/21 07:17 10/09/21 07:17 Laboratory Results WBC 5.7 10^3/uL (4.0-10.0) 10/09/21 07:17 RBC 5.76 10^6/uL (4.1-5.3) H 10/09/21 07:17 Hgb 16.8 g/dL (11.7-16.6) H 10/09/21 07:17 Hct 47.3 % (42.0-52.0) 10/09/21 07:17 MCV 82.1 fl (80-94) 10/09/21 07:17 MCH 29.2 pg (28.0-34.0) 10/09/21 07:17 MCHC 35.5 g/dL (30.0-36.0) 10/09/21 07:17 RDW 12.7 % (12.1-15.1) 10/09/21 07:17 Plt Count 191 10^3/cmm (130-400) 10/09/21 07:17 MPV 10.1 fL (7.4-10.4) 10/09/21 07:17 Neut % (Auto) 62.4 % 10/09/21 07:17 Lymph % (Auto) 23.3 % 10/09/21 07:17 Loup % (Auto) 10.4 % 10/09/21 07:17 Eos % (Auto) 2.5 % 10/09/21 07:17 Baso % (Auto) 0.9 % 10/09/21 07:17 Neut # (Auto) 3.54 10^3/uL (1.8-7.7) 10/09/21 07:17 Lymph # (Auto) 1.3 10^3/uL (0.8-4.8) 10/09/21 07:17 Loup # (Auto) 0.6 10^3/uL (0.2-0.9) 10/09/21 07:17 Eos # (Auto) 0.1 10^3/uL (0.0-0.8) 10/09/21 07:17 Baso # (Auto) 0.1 10^3/uL (0.0-0.1) 10/09/21 07:17 Nucleated RBC % (auto) 0 % 10/09/21 07:17 Nucleated RBCs # 0.0 /100WBC 10/09/21 07:17 Sodium 132 mmol/L (136-145) L 10/09/21 07:17 Potassium 3.3 mmol/L (3.5-5.1) L 10/09/21 07:17 Chloride 93 mmol/L (98-107) L 10/09/21 07:17 Carbon Dioxide 23 mmol/L (22-29) 10/09/21 07:17 Anion Gap 19.3 (5-19) H 10/09/21 07:17 BUN 26 mg/dL (6-20) H 10/09/21 07:17 Creatinine 1.2 mg/dL (0.7-1.2) 10/09/21 07:17 GFR Calculation 72.1 mL/min (90-130) L 10/09/21 07:17 Glucose 102 mg/dL (65-115) 10/09/21 07:17 Calculated Osmolality 279 mOsm/kg (285-295) L 10/09/21 07:17 Calcium 9.3 mg/dL (8.5-10.5) 10/09/21 07:17 Total Bilirubin 1.2 mg/dL (0.15-1.2) 10/09/21 07:17 AST 25 U/L (0-40) 10/09/21 07:17 ALT 16 U/L (0-41) 10/09/21 07:17 Alkaline Phosphatase 82 IU/L (40-130) 10/09/21 07:17 Total Protein 7.5 g/dL (6.6-8.7) 10/09/21 07:17 Albumin 4.9 g/dL (3.5-5.2) 10/09/21 07:17 Globulin 2.6 g/dL (1.3-4.6) 10/09/21 07:17 Salicylates < 0.3 mg/dL (3-10) L 10/09/21 07:17 Acetaminophen < 5.0 ug/mL (10-30) L 10/09/21 07:17 Discharge Plan Discharge Patient Disposition: Admitted As Inpatient Clinical Impression: Psychosis, History of schizophrenia Condition: Stable Coding Level of Care Code ED [place] for Naye Fwparam Exam Comprehensive
[2021-10-09 07:27] LABS: Basophils # 0.1 10^3/uL (0.0-0.1); Basophils % 0.9 %; Eosinophils # 0.1 10^3/uL (0.0-0.8); Eosinophils % 2.5 %; Hematocrit 47.3 % (42.0-52.0); Hemoglobin 16.8 g/dL (11.7-16.6); Lymphocytes # 1.3 10^3/uL (0.8-4.8); Lymphocytes % 23.3 %; Mean Corpuscular HGB Conc 35.5 g/dL (30.0-36.0); Mean Corpuscular Hemoglobin 29.2 pg (28.0-34.0); Mean Corpuscular Volume 82.1 fl (80-94); Mean Platelet Volume 10.1 fL (7.4-10.4); Monocytes # 0.6 10^3/uL (0.2-0.9); Monocytes % 10.4 %; Neutrophils # 3.54 10^3/uL (1.8-7.7); Neutrophils % 62.4 %; Nucleated Red Blood Cells % 0 %; Platelet Count 191 10^3/cmm (130-400); Red Blood Count 5.76 10^6/uL (4.1-5.3); Red Cell Distribution Width 12.7 % (12.1-15.1); White Blood Count 5.7 10^3/uL (4.0-10.0)
[2021-10-09 07:43] LABS: Alanine Aminotransferase 16 U/L (0-41); Albumin Level 4.9 g/dL (3.5-5.2); Alkaline Phosphatase 82 IU/L (40-130); Anion Gap 19.3 (5-19); Aspartate Amino Transferase 25 U/L (0-40); Blood Urea Nitrogen 26 mg/dL (6-20); Calcium 9.3 mg/dL (8.5-10.5); Carbon Dioxide 23 mmol/L (22-29); Chloride 93 mmol/L (98-107); Globulin 2.6 g/dL (1.3-4.6); Glomerular Filtration Rate 72.1 mL/min (90-130); Glucose 102 mg/dL (65-115); Osmolality Calculated 279 mOsm/kg (285-295); Potassium 3.3 mmol/L (3.5-5.1); Sodium 132 mmol/L (136-145); Total Bilirubin 1.2 mg/dL (0.15-1.2); Total Protein 7.5 g/dL (6.6-8.7)
[2021-10-09 07:44] LABS: Acetaminophen < 5.0 ug/mL (10-30); Salicylate < 0.3 mg/dL (3-10)
[2021-10-09 10:27] VITALS: BP 129/83; PULSE 98; RESP 16; O2SAT 98
[2021-10-09] MEDS: OLANZapine 10 mg ODT PO (12:33)
[2021-10-09 12:36] VITALS: BP 123/88; PULSE 86; O2SAT 94
[2021-10-09 16:45] VITALS: PULSE 85; RESP 16; O2SAT 98
--- NOTE | 2021-10-09 18:30 | PC.NURSE ---
PRN BENADRYL/ATIVAN/HALDOL BENADRYL 50 MG GIVEN IM IN LEFT DELTOID WITH HALDOL 5 MG/ATIVAN 2 MG IM IN LEFT DELTOID PER PT C/O INCREASED ANXIETY/AGITATION. NEW ADMIT, MOANING LOUDLY TO HIMSELF, SAID I'M JUST SO FREAKING DEPRESSED! TOOK MEDS WITHOUT INCIDENT. WILL CONT TO MONITOR.
[2021-10-09] MEDS: diphenhydrAMINE 50 mg/mL SDV 1mL IM (18:36)
[2021-10-09] MEDS: LORazepam 2 mg/mL INJ 1 mL IM (18:37)
[2021-10-09] MEDS: haloperidol inj 5 mg/mL INJ 1 mL IM (18:37)
[2021-10-09 21:32] VITALS: RESP 18
[2021-10-10 06:00] VITALS: BP 101/70; PULSE 73; RESP 17; TEMP 36.6; O2SAT 99
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
[2021-10-10 14:00] VITALS: BP 114/76; PULSE 90; RESP 18; TEMP 36.6; O2SAT 97
[2021-10-10] MEDS: OLANZapine 5 mg ODT PO (14:52)
--- NOTE | 2021-10-10 14:55 | PC.NURSE ---
Patient at nurses station with c/o anxiety. Zydis 5 mg sl given for this.
[2021-10-10 20:31] VITALS: BP 117/80; PULSE 84; RESP 14; TEMP 36.6; O2SAT 96
[2021-10-10] MEDS: trazodone 50 mg Tablet PO (21:48)
[2021-10-10] MEDS: hyDROXYzine 25 mg Capsule 50 MG PO (21:48)
[2021-10-11 06:00] VITALS: BP 116/78; PULSE 84; RESP 16; TEMP 36.4; O2SAT 98
--- NOTE | 2021-10-11 08:58 | PC.NURSE ---
PT IN ROOM RESTING. DENIES PAIN. DENIES SI/HI AND AVH AT THIS TIME. STATES, I WAS PARANOID ABOUT THE MEDICATIONS AND TAKING THEM WHEN I CAME IN, NOW THAT I'M TAKING THEM I FEEL ALOT BETTER AND I'M NOT PARANOID ANYMORE. SUPPORT VOICED.
[2021-10-11] MEDS: OLANZapine 5 mg ODT PO ×2 (09:42→21:03)
--- NOTE | 2021-10-11 09:42 | PC.NURSE ---
Addendum entered by Yesenia Mcdaniels RN 10/11/21 09:45: PT THANKED STAFF AND VERBALIZED UNDERSTANDING. BREATHING TECHNIQUES TAUGHT AND PT RETURNED DEMONSTRATION AND UNDERSTANDING OF BREATHING TECHNIQUES WHEN ANXIOUS. Original Note: PRN MEDICATIONS PT AT NURSES STATION VERY ANXIOUS, STATES, I NEED A LOT OF THESE PILLS WHEN I LEAVE, I JUST CAN'T CALM MYSELF DOWN WHEN I GET LIKE THIS ITS IS REALLY HARD FOR ME. EDUCATED PT TO LET THIS RN OR STAFF KNOW BEFORE HE IS SO ANXIOUS HE CAN NOT CALM DOWN. PT VERBALIZES UNDERSTANDING. ZYDIS 5 MG WAS ADMINISTERED ORDERED. PT WENT BACK TO ROOM AND CONTINUED TO PACE. INFORMED PT THAT IF THE MEDICATION DID NOT WORK IN AN HOUR OR SO TO LET THIS RN OR STAFF KNOW AND WE COULD GET HIM SOMETHING ELSE. PT THANKFU
[2021-10-11] MEDS: hyDROXYzine 25 mg Capsule 50 MG PO ×2 (09:44→16:18)
[2021-10-11 14:00] VITALS: BP 109/58; PULSE 73; RESP 15; TEMP 36.9; O2SAT 96
--- NOTE | 2021-10-11 17:12 | W.PM.NPUPNS ---
Subjective NPU Subjective: Patient presents today a little less isolative and taking the medication as prescribed. Unfortunately he was also asking about discharge and we discussed desire to please monitor him for another day but more importantly wanting him to work with the social work team to figure out what was going to be possible as a place to discharge to. Mother is concerned and rightly so about him being on medication and stable if he is going to be at home. Mental Status Exam MSE Comments: This is a tall slender well-nourished well-developed white male in hospital scrubs with limited grooming and eye contact. No abnormal movements except for mild psychomotor retardation. Somewhat cooperative with exam in mild to moderate distress. Speech was decreased rate and volume. Mood described as I think I am better, do think I can go home affect congruent and guarded. Thought process mostly organized. Thought content: Patient denied suicidal or homicidal ideation, he reported paranoia and paranoid and persecutory delusions seemed apparent, he endorsed auditory hallucinations but did not report visual hallucinations. Attention and concentration were limited and memory appeared mostly reliable but none were formally tested. He is alert and oriented x3 Insight and judgment are impaired, impulse control impaired. Vitals/I&O/Wt Last Vital Signs Temp 98.5 F 10/11/21 14:00 Pulse 73 10/11/21 14:00 Resp 15 10/11/21 14:00 BP 109/58 10/11/21 14:00 Pulse Ox 96 10/11/21 14:00 Data NPU : 10/09/21 07:17 10/09/21 07:17 A&P Assessment and plan (1) Cannabis abuse: Status: Acute (2) Alcohol use disorder: Status: Acute (3) History of schizophrenia: Status: Acute (4) Psychosis: Status: Acute Plan This is a 26-year-old white male with a reported history of schizophrenia and active addiction who presents with active psychosis but endorsing an openness to restart past medication with a goal of adherence after this stay. 1.? Continue current medication.? Started Invega 6 mg p.o. daily. Will recommend considering the injection. 2.? Continue every 15 minute checks for safety. 3.? Encourage individual, group and milieu therapies. 4.? Encourage sober living treatment after discharge at the highest level of care to which he is willing to commit. Attestations NPU Medical Necessity Statement*: Inpatient hospitalization is medically necessary and the clinically appropriate intervention at this time. We will monitor medication to make changes as indicated. Likely length of stay 2-4 days. Coding Level of Care Code Acute Field Crop Farming Supervisor for [facility] Fwd Diagnoses Cannabis abuse F12.10 Alcohol use disorder History of schizophrenia Z86.59 Psychosis F29
[2021-10-11] MEDS: haloperidol 5 mg Tablet PO (18:33)
[2021-10-11 20:08] VITALS: BP 114/73; PULSE 75; RESP 17; TEMP 36.7; O2SAT 98
[2021-10-11] MEDS: trazodone 50 mg Tablet PO (21:03)
--- NOTE | 2021-10-11 21:51 | PC.NURSE ---
PT REQUESTED MEDICATION TO HELP WITH SLEEP AND ANXIETY. TRAZADONE AND OLANZAPINE WERE GIVEN
[2021-10-12 06:00] VITALS: BP 116/64; PULSE 60; RESP 16; TEMP 36.4; O2SAT 98
[2021-10-12] MEDS: OLANZapine 5 mg ODT PO (08:40)
[2021-10-12] MEDS: hyDROXYzine 25 mg Capsule 50 MG PO (08:40)
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
[2021-10-12 14:00] VITALS: BP 122/78; PULSE 71; RESP 16; TEMP 36.4; O2SAT 98
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
--- NOTE | 2021-10-12 16:02 | PM.CONSULT ---
Providers/Reason For Consult Consulting Physician/Specialty*: Psychiatry Reason for Consult*: Rash Attending Physician: Jose Goncalves MD History of Present Illness History of Present Illness Peterson Pavon is a 26 year old male with a past medical history of cannabis use, alcohol use disorder, history of schizophrenia who presents to [facility] due to acute psychosis. Hospitalist team was consulted due to concerns for a diffuse rash. Patient tells me that he has had this rash since he was a child, its psoriasis he tells me, he has received steroids in the past, topical steroids, many other treatments, but it persists. He is learning to live with it, he tells me that some of the rash on his abdomen looks a little bit raw, because he was scrubbing at it, and it has tend to some degree he tells me that Topical tea tree oil works best for him. Currently he is unemployed. Currently he does not have any insurance. He he tells me he discovered [place], and he plans on traveling the country. Right now he is in [place], and he plans on going to a warmer state he is going to [place], he tells me that he has done this for the last 6 years or so. Denies a history of sexually transmitted diseases, denies any wheezing, denies any shortness of breath, he tells me the rash does not really itch him, does not really bother him, but is all over his back, his abdomen, his legs, his arms, has spared the face, but some on his neck. Review of Systems Const: Denies: fever(s) Resp: Denies: dyspnea, productive cough, non-productive cough or wheezing GI: Denies: abdominal pain Skin/Breast: Denies: rash Medications/Allergies Home Medications Medication Instructions Recorded Confirmed Last Taken Type No Known Home Medications 10/09/21 10/09/21 Unknown History Allergies Allergy/AdvReac Type Severity Reaction Status Date / Time No Known Allergies Allergy Verified 10/09/21 07:50 Current Medications Generic Name Dose Route Start Last Admin Trade Name Freq PRN Reason Stop Dose Admin Diphenhydramine HCl 50 mg 10/09/21 18:10 10/09/21 18:36 Diphenhydramine 50 Mg/Ml Sdv 1ml IM 50 mg Q4H PRN Administration Severe Aggression Haloperidol 5 mg 10/09/21 18:10 10/11/21 18:33 Haloperidol 5 Mg Tablet PO 5 mg Q4H PRN Administration AGITATION Haloperidol Lactate 5 mg 10/09/21 18:10 10/09/21 18:37 Haloperidol Inj 5 Mg/Ml Inj 1 Ml IM 5 mg Q4H PRN Administration Severe Aggression Hydroxyzine Pamoate 50 mg 10/09/21 18:10 10/12/21 08:40 Hydroxyzine 25 Mg Capsule PO 50 mg Q6H PRN Administration ANXIETY Lorazepam 2 mg 10/09/21 18:10 10/09/21 18:37 Lorazepam 2 Mg/Ml Inj 1 Ml IM 2 mg Q4H PRN Administration Severe Aggression Olanzapine 5 mg 10/09/21 18:10 10/12/21 08:40 Olanzapine 5 Mg Odt PO 5 mg Q4H PRN Administration Agitation/Psychosis PFSH Acute PFSH: Medical History Schizophrenia Social History Smoking and tobacco status: former smoker Alcohol intake: unknown Vitals/I&O/Wt Last Vital Signs Temp 97.6 F 10/12/21 14:00 Pulse 71 10/12/21 14:00 Resp 16 10/12/21 14:00 BP 122/78 10/12/21 14:00 Pulse Ox 98 10/12/21 14:00 Physical Exam Const: COMMON NORMALS: no acute distress and patient oriented x3 HENMT: COMMON NORMALS: normocephalic HEAD & SCALP: normocephalic Resp: COMMON NORMALS: normal respiratory effort, No retractions, No use of accessory muscles and clear to auscultation bilaterally AUSCULTATION: clear to auscultation bilaterally Cardio: COMMON NORMALS: regular rate, regular rhythm, S1 normal heart sound present and S2 normal heart sound present RATE: regular rate RHYTHM: regular rhythm HEART SOUNDS: S1 normal heart sound present and S2 normal heart sound present GI: COMMON NORMALS: Normal to inspection, nondistended, normoactive bowel sounds present, Soft to palpation, non-tender, No hepatosplenomegaly present, no masses and no bruits PALPATION: Yes Soft to palpation and Yes No hepatosplenomegaly present Extremity: COMMON NORMALS: capillary refill normal, no clubbing, cyanosis or edema, no calf tenderness and no pedal edema Neuro: COMMON NORMALS: patient oriented x3 Psych: COMMON NORMALS: mental status grossly normal Skin: NARRATIVE SKIN EXAM: On his back, on his abdomen, on his legs, on his arms -Multiple macular papular rashes, raised borders, with flaking, some satellite lesions, some confluent lesions, irregular borders, erythema and borders -Exactly like gout Mendosa psoriasis Data : 10/09/21 07:17 10/09/21 07:17 A&P Assessment and plan (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 -Has received steroids, topical steroids, multiple treatments in the past -Not really pruritic -Honestly he is not really bothering him -Some of the rashes on his abdomen are more raw due to scrubbing -Typically tea tree oil works best -Currently uninsured, does not plan on getting a job, but working on getting health insurance -He tells me he is really only planning on traveling the country, hitchhiking, going down to where it is warmer because it is going to start getting colder -I advised that currently as is not bothering him, continue to monitor, and he does not want to try steroids -Once he gets insured, he does have good options such as Enbrel -Follow-up with primary care or heart nurse Status: Acute Coding Level of Care Code Acute Shank Carrier for g Fwd Diagnoses 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
[2021-10-12 20:20] VITALS: BP 112/64; PULSE 82; RESP 20; TEMP 36.6; O2SAT 97
--- NOTE | 2021-10-12 20:59 | PC.NURSE ---
PT HAS REPEATEDLY CAME TO NURSES STATION STATING HIS MOTHER IS ON HER WAY TO PICK HIM UP. PROVIDER IS AWARE THAT PT WANTS TO LEAVE AMA. AT THIS TIME PT MOTHER HAS NOT CAME IN TO PICK HIM UP.
[2021-10-12 21:43] VITALS: BP 112/64; PULSE 82; RESP 20; TEMP 36.6; O2SAT 97
--- NOTE | 2021-10-12 21:45 | P.NPUDS_ITS ---
Diagnoses at Discharge Discharge Diagnosis (1) Guttate psoriasis: Status: Acute Reason for Visit Reason for Visit: MHE Brief History: History of Present Illness Peterson Pavon is a 26 year old male who presented to the emergency department with the following report: Chief Complaint: Psychiatric Symptoms Stated Complaint: MHE Time Seen by Provider: 10/09/21 06:53 Source: patient Mode of arrival: ambulatory Limitations: no limitations History of Present Illness:?? 26-year-old male presents emergency room complaining of suicidal ideation auditory hallucinations.? He has a history of suicidal ideation in the past.? He has a history of schizophrenia as well.? He has some random tangential thoughts.? Some zoroastrian leanings regarding his behavior.? He also reports that he has nowhere to go.? Last month he was hospitalized for similar type issues discharged home with oral medications but never had this filled so he not been taking anything. MD complaint: suicidal ideation and feels depressed Onset (ago): unknown Duration: constant and changing over time History of same: Yes Relieving factors: none Exacerbating factors: none Context: not taking psychiatric medications Associated symptoms: Reports auditory hallucinations, suicidal ideation and racing thoughts; Deny visual hallucinations, delusions, depression or homicidal ideation Treatments prior to arrival: none If self harm: admits thoughts of self harm. He was admitted to the neuropsychiatric unit for definitive treatment of those issues.? 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 He reports that he did not stand at his mother's house but that he come conflictual because of the symptoms that he was having him not being able to control himself.? He struggled to articulate specifically what that meant but he did report having paranoia and persecutory delusions and already hallucinations.? He reports he has been sober recently outside of marijuana.? He reports that the symptoms just described at become overwhelming.? He reports that he did not really continue the medication after he left our facility, that he had been to least 1 other facility and not continue those medications, and he denies actively being involved in any outpatient psychiatric follow-up.? We discussed with benefits and alternatives of restarting the medication he had here last time and he understood and agreed proceed as is documented in this note.? We discussed trying to create an environment where he was adherent to the medications and had follow-up after discharge. Per his 06/10/2021 [facility] inpatient psychiatric evaluation: History of Present Illness Peterson Pavon is a 26 year old male who presented to the emergency department with the following report: Chief complaint: Psychiatric Symptoms Stated complaint: MHE Time Seen by Provider: 06/09/21 16:43? ? History of Present Illness: ?? HPI: [26]yo patient w/ hx of schizophrenia BIBA for acute onset of psychosis. 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 On arrival, the patient is AAOx3 and cooperative with my evaluation. No focal complaints of chest pain, shortness of breath, palpitations, N/V, focal GI/ complaints. Onset: unknown Duration: ongoing Location: home Severity: severe Associated symptoms: Deny chest pain, dyspnea, nausea, rash, palpitations or vomiting He was admitted to the neuropsychiatric unit for definitive treatment of those issues. He presents today appearing quite disturbed and endorsing irritability and needing help with medication to calm down. He did take some Zyprexa Zydis for that end. He was very amped during the conversation and initially seemed to be unwilling to engage in psychopharmacology long-term. His report was that there was some issue between him and the anabaptist and that he is aware of issues that they have including the illuminati. He reports that somehow in the process he was diagnosed with schizophrenia but that would be suffering from is a very intense spiritual problem and less a psychiatric problem. He expressed anger at the anabaptist because when he feels he has tried to talk to them about what he needs in the spiritual discoveries made they have supported him only by suggesting that he go to a psychiatric facility and get help. He endorsed being unaware if there is anything that can be done to help him. And because of the level of spiritual problems that he was unsure that anything other than a very strong medication could have a chance to help him. He spent most of the interview referring to different scriptures and sharing their meaning and any ideas or delusions of reference that he had surrounding those scriptures. His heavy focus on zoroastrian connectivity made it difficult for him to break away to answer questions of his personal history with any consistency. He did share that at times he got so worked up from the anabaptist and the thoughts that he was having that he did drink to cope with the mental anguish. Hospital Course Hospital Course He slowly acclimated to the individual, group and milieu therapies provided. He has baseline psychosis would not treat medication he was considering initiating Invega but ultimately was not willing to take the medication. We had a fairly open discussion about discerns about his psychosis impacting his functionality in fact we will be discharged AGAINST MEDICAL ADVICE, however if he returns in a similar situation may feel compelled to breath or 96-hour hold for longer period he denied any credible lethality to contract safety outside of the hospital prior to discharge. During the hospitalization, patient had routine laboratory studies which were within normal limits except for few outliers. Additionally there was a general medical evaluation which was also within normal limits and revealed no new acute processes. Discharge Summary: At the time of discharge, lethality was denied and psychosis was still present. Mood and anxiety were well managed. Patient endorsed a plan to avoid all drugs of abuse and follow-up with the aftercare recommendations of the treatment team. Patient was evaluated and deemed to be absent credible lethality, and was a voluntary patient no longer wanting inpatient hospitalization, so he was discharged. Mental Status Exam MSE Comments: This is a tall slender well-nourished well-developed white male in hospital scrubs with limited grooming and eye contact. No abnormal movements except for mild psychomotor retardation. Somewhat cooperative with exam in mild distress. Speech was decreased rate and volume. Mood described as better, affect congruent but guarded. Thought process mostly organized. Thought content: Patient denied suicidal or homicidal ideation, he reported reducing paranoia and paranoid and persecutory delusions seemed apparent, he endorsed auditory hallucinations but did not report visual hallucinations. Attention and concentration were limited and memory appeared mostly reliable but none were formally tested. He is alert and oriented x3 Insight and judgment are limited, impulse control impaired. Discharge Data Studies Completed and Pending: Laboratory Results WBC 5.7 10^3/uL (4.0- 10.0) 10/09/21 07:17 RBC 5.76 10^6/uL (4.1 -5.3) H 10/09/21 07:17 Hgb 16.8 g/dL (11.7-1 6.6) H 10/09/21 07:17 Hct 47.3 % (42.0-52.0 ) 10/09/21 07:17 MCV 82.1 fl (80-94) 10/09/21 07:17 MCH 29.2 pg (28.0-34. 0) 10/09/21 07:17 MCHC 35.5 g/dL (30.0-3 6.0) 10/09/21 07:17 RDW 12.7 % (12.1-15.1 ) 10/09/21 07:17 Plt Count 191 10^3/cmm (130 -400) 10/09/21 07:17 MPV 10.1 fL (7.4-10.4 ) 10/09/21 07:17 Neut % (Auto) 62.4 % 10/09/21 07:17 Lymph % (Auto) 23.3 % 10/09/21 07:17 [place] % (Auto) 10.4 % 10/09/21 07:17 Eos % (Auto) 2.5 % 10/09/21 07:17 Baso % (Auto) 0.9 % 10/09/21 07:17 Neut # (Auto) 3.54 10^3/uL (1.8 -7.7) 10/09/21 07:17 Lymph # (Auto) 1.3 10^3/uL (0.8- 4.8) 10/09/21 07:17 [place] # (Auto) 0.6 10^3/uL (0.2- 0.9) 10/09/21 07:17 Eos # (Auto) 0.1 10^3/uL (0.0- 0.8) 10/09/21 07:17 Baso # (Auto) 0.1 10^3/uL (0.0- 0.1) 10/09/21 07:17 Nucleated RBC % (a uto) 0 % 10/09/21 07:17 Nucleated RBCs # 0.0 /100WBC 10/09/21 07:17 Sodium 132 mmol/L (136-1 45) L 10/09/21 07:17 Potassium 3.3 mmol/L (3.5-5 .1) L 10/09/21 07:17 Chloride 93 mmol/L (98-107 ) L 10/09/21 07:17 Carbon Dioxide 23 mmol/L (22-29) 10/09/21 07:17 Anion Gap 19.3 (5-19) H 10/09/21 07:17 BUN 26 mg/dL (6-20) H 10/09/21 07:17 Creatinine 1.2 mg/dL (0.7-1. 2) 10/09/21 07:17 GFR Calculation 72.1 mL/min (90-1 30) L 10/09/21 07:17 Glucose 102 mg/dL (65-115 ) 10/09/21 07:17 Calculated Osmolal ity 279 mOsm/kg (285- 295) L 10/09/21 07:17 Calcium 9.3 mg/dL (8.5-10 .5) 10/09/21 07:17 Total Bilirubin 1.2 mg/dL (0.15-1 .2) 10/09/21 07:17 AST 25 U/L (0-40) 10/09/21 07:17 ALT 16 U/L (0-41) 10/09/21 07:17 Alkaline Phosphata se 82 IU/L (40-130) 10/09/21 07:17 Total Protein 7.5 g/dL (6.6-8.7 ) 10/09/21 07:17 Albumin 4.9 g/dL (3.5-5.2 ) 10/09/21 07:17 Globulin 2.6 g/dL (1.3-4.6 ) 10/09/21 07:17 Salicylates < 0.3 mg/dL (3-10 ) L 10/09/21 07:17 Acetaminophen < 5.0 ug/mL (10-3 0) L 10/09/21 07:17 Vitals: Last Vital Signs Temp 98 F 10/12/21 21:43 Pulse 82 10/12/21 21:43 Resp 20 H 10/12/21 21:43 BP 112/64 10/12/21 21:43 Pulse Ox 97 10/12/21 21:43 Discharge Plan Discharge Patient Disposition: Left Against Medical Advice Condition: Stable Prescriptions: Continued No Known Home Medications 0RF Discharge Orders: Discharge Order (Routine); Ordered 10/12/21 Ordered By: Jose Goncalves Referrals: [facility] [Outside] Discharge Diet: Regular Discharge Activity: Resume usual activity Discharge Attestations NPU Time Spent in Discharge Care*: greater than 30 min Specific Discharge Activities: Specific discharge activities: educating patient, discussing with disease case manager/social workers/dc planners, documenting/other paperwork and evaluating patient/reviewing data Coding Level of Care Code Acute Chg FW DC note Diagnoses 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
== END 2021-10-12 21:55 | disposition left against medical advice (07) | DRG 885 ==
LOC: ER 08:04 → NP 10-10 05:37
PROVIDERS: Admitting Provider Psychiatry & Neurology Psychiatry; Emergency Provider Family Medicine; Visit Provider Psychiatry & Neurology Psychiatry
DX: F20.9 Schizophrenia, unspecified (principal); R45.851 Suicidal ideations; Z87.891 Personal history of nicotine dependence; F12.10 Cannabis abuse, uncomplicated; F10.10 Alcohol abuse, uncomplicated; Z53.29 Procedure and treatment not carried out because of patient's decision for other reasons; L40.4 Guttate psoriasis
CPT/HCPCS: 80053; 80307; 85025; 96372; 97150; 97165; 99285; J1200; J1630; J2060

== ENCOUNTER 2024-06-25 09:59 | Inpatient (IN) | payer SELFPAY ==
[2024-06-25 09:57] VITALS: BP 117/76; PULSE 86; RESP 16; TEMP 36.7; O2SAT 95; BMI 29.7
--- NOTE | 2024-06-25 10:29 | ED.C_ITS ---
HPI - Psych General: Chief Complaint: Psychiatric Symptoms Stated Complaint: MHE Time Seen by Provider: 06/25/24 10:07 History of Present Illness: 29-year-old male presents to the emergen cy room from local substance abuse inpatient program states he does not have the will of the left. He reports she has suicidal ideation. Related Data Home Medications ?Medication ?Instructions ?Recorded ?Confirmed hydroxyzine HCl 25 mg tablet 25 mg PO Q6H PRN nausea a nd 06/25/24 06/25/24 vomiting olanzapine 20 mg tablet (Zyprexa) 20 mg PO QPM 5 06/25/24 Previous Rx's ?Medication ?Instructions ?Recorded escitalopram oxalate 10 mg tablet 10 mg PO DAILY Active Implants #30 06/22/24 (Lexapro) tabs Allergies Allergy/AdvReac Type Severity Reaction Status Date / Time No Known Allergies Allergy Verified 06/25/24 10:04 Review of Systems Const: Denies: fever(s) or chills Card: Denies: chest pain Resp: Denies: dyspnea GI: Denies: abdominal pain : Denies: dysuria, urinary frequency or urinary urgency Musc: Denies: neck pain or back pain Skin/Breast: Denies: rash PFSH ED PFSH: Medical History Anxiety and depression Psychiatric care Schizophrenia Social History Smoking and tobacco/nicotine status: current some day tobacco/nicotine user Alcohol intake: unknown Substance/Drug Use: unknown Physical Exam Const: COMMON NORMALS: no acute distress GENERAL APPEARANCE: cooperative and comfortable ORIENTATION/CONSCIOUSNESS: Yes awake, Yes oriented to person, Yes oriented to place and Yes oriented to time HENMT: COMMON NORMALS: normocephalic, atraumatic and hearing grossly normal bilaterally HEAD & SCALP: normocephalic and atraumatic Resp: COMMON NORMALS: normal respiratory effort, No retractions, No use of accessory muscles and clear to auscultation bilaterally AUSCULTATION: clear to auscultation bilaterally Cardio: COMMON NORMALS: regular rate, regular rhythm and No murmurs present (Cardio) RATE: regular rate RHYTHM: regular rhythm GI: COMMON NORMALS: Soft to palpation and No hepatosplenomegaly present AUSCULTATION: Yes normoactive bowel sounds PALPATION: Yes Soft to palpation, No Tenderness to palpation present (GI), No Guarding due to palpation present (GI) and Yes No hepatosplenomegaly present Extremity: COMMON NORMALS: normal to inspection, capillary refill normal, no clubbing, cyanosis or edema, no calf tenderness and no pedal edema Neuro: SENSORIUM/ORIENTATION: Yes oriented to person, Yes oriented to place and Yes oriented to time Skin: COMMON NORMALS: no rashes or lesions noted GENERAL SKIN EXAM: no rashes or lesions noted Course Vital Signs: Vital signs: Vital Signs Temperature 98.0 F 06/25/24 09:57 Pulse Rate 86 06/25/24 09:57 Respiratory Rate 16 06/25/24 09:57 Blood Pressure 117/76 06/25/24 09:57 Pulse Oximetry 95 06/25/24 09:57 Oxygen Delivery Me thod Room Air 06/25/24 09:57 MDM - Psych Medical Decision Making Patient presents with suicidal ideation. He is requesting to be euthanized. Will place him on a 96-hour hold. Discussed with Dr. Preciado is on-call for psychiatry he will admit to MPU orders written Lab Data Laboratory Results Urine Color Yellow (Yellow) 06/25/24 10:17 Urine Appearance Clear (CLEAR) 06/25/24 10:17 Urine pH 5.5 (5-7) 06/25/24 10:17 Ur Specific [place] 1.023 (1.005-1.030) 06/25/24 10:17 Urine Protein Trace (Negative) A 06/25/24 10:17 Urine Glucose (UA) Negative (Normal) 06/25/24 10:17 Urine Ketones 2+ (Negative) H 06/25/24 10:17 Urine Blood Negative (Negative) 06/25/24 10:17 Urine Nitrate Negative (Negative) 06/25/24 10:17 Urine Bilirubin Negative (Negative) 06/25/24 10:17 Urine Urobilinogen 1.0 mg/dL (Negative) 06/25/24 10:17 Ur Leukocyte Esterase Negative (Negative) 06/25/24 10:17 Urine RBC 0-2 /hpf (0-2) 06/25/24 10:17 Urine WBC 0-5 /hpf (0-5) 06/25/24 10:17 Ur Squamous Epith Cells 0-5 /hpf (0-5) 06/25/24 10:17 Amorphous Sediment Not Reportable 06/25/24 10:17 Urine Bacteria None seen /hpf (NONE) 06/25/24 10:17 Hyaline Casts 1.21 /lpf 06/25/24 10:17 No radiology studies performed this visit Discharge Plan Discharge Patient Disposition: Admitted As Inpatient Clinical Impression: Suicidal ideation, History of schizophrenia, Cannabis abuse, Anxiety and depression Condition: Stable Prescriptions: No Action escitalopram oxalate [Lexapro] 10 mg tablet 10 mg PO DAILY Qty: 30 1RF hydroxyzine HCl 25 mg tablet 25 mg PO Q6H PRN (Reason: nausea and vomiting) olanzapine [Zyprexa] 20 mg Tablet 20 mg PO QPM Print Language: Citizen Of [place] Coding Level of Care Code ED Viticulture Teacher for Naye Keene
[2024-06-25 10:33] LABS: Bilirubin Urine Negative (Negative); Blood Urine Negative (Negative); Glucose Urine UA Negative (Normal); Ketones Urine 2+ (Negative); Leukocyte Esterase Urine Negative (Negative); Nitrate Urine Negative (Negative); Protein Urine Trace (Negative); Specific Gravity, Urine 1.023 (1.005-1.030); Urine Appearance Clear (CLEAR); Urine Color Yellow (Yellow); pH Urine 5.5 (5-7)
[2024-06-25 10:35] LABS: Add Urine Microscopic? YES; Bacteria Urine None Seen /hpf; Hyaline Casts Urine 1.21 /lpf; RBC Urine 0-2 /hpf (0-2); Squamous Epithelial Cell Urine 0-5 /hpf (0-5); WBC Urine 0-5 /hpf (0-5)
[2024-06-25] MEDS: sodium chloride 0.9% 1,000 ML 999 ML IV (11:22)
[2024-06-25 11:23] LABS: Basophils % 0.6 %; Eosinophils # 0.1 10^3/uL (0.0-0.8); Eosinophils % 2.4 %; Hematocrit 47.3 % (37-53); Mean Corpuscular HGB Conc 33.4 g/dL (30-55); Mean Corpuscular Volume 89.9 fl (82-101); Mean Platelet Volume 9.4 fL (7.4-10.4); Monocytes # 0.3 10^3/uL (0.2-0.9); Monocytes % 6.5 %; Neutrophils % 69.3 %; Nucleated Red Blood Cells % 0 %; Platelet Count 185 10^3/cmm (157-399); Red Blood Count 5.26 10^6/uL (3.85-5.65); Red Cell Distribution Width 11.9 % (12.1-15.1); White Blood Count 4.62 10^3/uL (3.29-11.43)
--- NOTE | 2024-06-25 11:35 | PC.NURSE ---
96 hour hold rights and reviewed with patient. Angel from security present during reading of rights. Patient verbalized understandings and copy of rights given to patient.
[2024-06-25 11:48] LABS: Alanine Aminotransferase 11 U/L (0-41); Albumin Level 4.5 g/dL (3.5-5.2); Alkaline Phosphatase 98 U/L (40-130); Aspartate Amino Transferase 12 U/L (0-40); Blood Urea Nitrogen 14 mg/dL (6-20); Calcium 9.2 mg/dL (8.5-10.5); Carbon Dioxide 20 mmol/L (22-29); Chloride 100 mmol/L (98-107); Creatinine Clr Calc Pharmacy 122.1615; Globulin 2.8 g/dL (1.3-4.6); Glomerular Filtration Rate 78.1 mL/min (90-130); Glucose 109 mg/dL (65-115); Osmolality Calculated 277 mOsm/kg (285-295); Sodium 133 mmol/L (136-145); Total Bilirubin 0.8 mg/dL (0.15-1.2); Total Protein 7.3 g/dL (6.6-8.7)
[2024-06-25 11:51] LABS: Acetaminophen < 5.0 ug/mL (10-30); Salicylate < 0.3 mg/dL (3-10)
[2024-06-25 12:54] VITALS: BP 113/72; PULSE 106; O2SAT 98
[2024-06-25 13:10] VITALS: BP 113/72; PULSE 106; O2SAT 98
[2024-06-25 13:15] VITALS: BP 116/81; PULSE 87; RESP 16; TEMP 37.1; O2SAT 97
[2024-06-25] MEDS: hyDROXYzine 25 mg Capsule 50 MG PO ×2 (13:34→20:49)
[2024-06-25 14:00] VITALS: BP 107/67; PULSE 89; RESP 16; TEMP 36.6; O2SAT 96
--- NOTE | 2024-06-25 14:12 | PC.ADMIT ---
904-2 Amgx Admission Note: The patient,Peterson Pavon,29 y/o, was given written information regarding hospital policies, unit procedures and contact persons. Patient's smoking status: current some day smoker. Vital Signs - 8 hr 06/25/24 09:57 06/25/24 12:54 06/25/24 13:10 Temperature 98.0 F Pulse Rate 86 106 H 106 H Respiratory Rate 16 Blood Pressure 117/76 113/72 113/72 Pulse Oximetry 95 98 98 Oxygen Delivery Method Room Air Room Air 06/25/24 13:15 06/25/24 13:19 Temperature 98.7 F Pulse Rate 87 Respiratory Rate 16 Blood Pressure 116/81 Pulse Oximetry 97 Oxygen Delivery Method Room Air Room Air ADMITTED FROM [facility] ER AT 1315 VIA WHEELCHAIR, SECURITY AND ER STAFF ON AN INVOLUNTARY 96 HOUR HOLD THAT ENDS ON 07/01/24 [id number] AM. PT STATES HE IS HERE DUE TO GOING TO [facility] LAST NIGHT BECAUSE I HAD A HARD NIGHT. PT DENIES BEING AT [facility] FOR ALCOHOL OR DRUG USE, ONLY STATES NO I JUST HAD A HARD NIGHT HAVING SUICIDAL THOUGHTS. PT STATES HE HAS NOT USED DRUGS OR ALCOHOL SINCE APRIL OF 2024 BUT USED THEM FOR 17 YEARS PRIOR TO THAT. PT STATES HE HAS HAD SUICIDAL THOUGHTS FOR A YEAR. CONTINUES TO ENDORSE THOUGHTS WITH NO PLAN, STATING ONLY IF I GET OUT OF HERE I COULD FIND A GUN. PT CONFIRMS HE HAS NO IMMEDIATE ACCESS TO GUNS AND IS HOMELESS AT THIS TIME. DENIES HI AT THIS TIME. PT ENDORSES HEARING VOICES BUT STATES I THINK OTHER PEOPLE HEAR THEM TOO. ALSO REPORTS SEEING PEOPLE THAT ARE NOT THERE BUT THEN STATES THEY'RE INVISIBLE SO I CAN'T SEE THEM, NO ONE CAN. DENIES PAIN. RATES ANXIETY 8/, CREDIT CONSULTANT ADMINISTERED VISTARIL 50 MG ORDERED FOR ANXIETY. RATES DEPRESSION 07/23. PT STATES HE WAS ON LEXAPRO AND ZYPREXA 20 MG AT HS BUT COULD NOT GET HIS MEDICATIONS AFTER LEAVING ASSISTED SO HE DID NOT TAKE THEM ANYMORE. REPORTS HE WILL GET VIOLENT TOWARDS HIMSELF SOMETIMES AND WILL PUNCH HIMSELF. PT SPEECH IS DELAYED AT TIMES AND HAS DIFFICULTY FINDING WORDS. PT DID REPORT HE HAD A HISTORY OF HUFFING AND HE DID THAT ON AND OFF FROM 13 YEARS OLD TO LATE 18'S. SKIN ASSESSMENT REVEALS PSORIASIS TO BILATERAL ARMS/ELBOWS/TRUNK AND BACK. NEW ORDERES RECEIVED FOR TRIAMCINOLONE CREAM TO AFFECTED AREAS. STATES HE IS HOMELESS AT THIS TIME AND WAS FORMERLY IN A SOBER LIVING HOUSE BUT DOES NOT WANT TO GO BACK. ORIENTATED TO UNIT. LUNCH PROVIDED. ALL QUESTIONS ANSWERED AND SUPPORT WAS VOICED.
[2024-06-25 14:15] LABS: Amphetamines Screen Urine Negative (Negative); Barbiturates Screen Urine Negative (Negative); Benzodiazepines Screen Urine Negative (Negative); Cocaine Screen Urine Negative (Negative); Opiate Screen Urine Negative (Negative); PCP Screen Urine Negative (Negative); THC Screen Urine Negative (Negative)
[2024-06-25] MEDS: OLANZapine 5 mg ODT PO (17:28)
[2024-06-25] MEDS: triamcinolone 0.5% cream 15 gm 1 APPLIC TOPICAL (17:29)
[2024-06-25 19:52] VITALS: BP 105/71; PULSE 88; RESP 17; TEMP 36.5; O2SAT 98
[2024-06-25] MEDS: trazodone 50 mg Tablet PO (20:49)
[2024-06-26 06:00] VITALS: BP 106/66; PULSE 94; RESP 18; TEMP 36.6; O2SAT 98
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
[2024-06-26] MEDS: escitalopram 10 mg Tablet PO (11:32)
[2024-06-26 13:39] VITALS: BP 126/78; PULSE 74; RESP 16; TEMP 37.3; O2SAT 97
[2024-06-26 19:38] VITALS: BP 122/68; PULSE 72; RESP 18; TEMP 37.1; O2SAT 96
[2024-06-26] MEDS: trazodone 50 mg Tablet PO (21:25)
[2024-06-26] MEDS: hyDROXYzine 25 mg Capsule 50 MG PO (21:25)
[2024-06-26] MEDS: OLANZapine 10 mg TABLET PO (21:25)
[2024-06-27 06:00] VITALS: BP 135/91; PULSE 101; RESP 16; O2SAT 93
[2024-06-27] MEDS: escitalopram 10 mg Tablet PO (08:35)
[2024-06-27 14:00] VITALS: BP 113/68; PULSE 72; RESP 16; TEMP 36.9; O2SAT 94
--- NOTE | 2024-06-27 16:20 | P.NPUPN_ITS ---
Subjective NPU 2 Subjective: 29-year-old male with a history of episo dic methamphetamine abuse along with alcohol admitted with increased psychosis and paranoia having reported stopping his antipsychotic medication from more than a month. He had continued to report feeling distracted by his thoughts and stated that his mind continued to race in different directions. He had reported that his problems with concentration remained and reported that his thoughts were unclear to him. He reported that he preferred to isolate himself here and stated that he was uncertain as to whether he would be ready to return [facility] treatment in his current state. He had endorsed continued depression. Mental Status Exam 2 MSE Comments: This is a tall slender well-nourished well-developed white male in hospital scrubs with limited grooming and fair eye contact. No abnormal movements except for mild psychomotor retardation. He was cooperative with exam in mild to moderate distress. Speech was decreased in rate, monotone in quality and normal in volume. Mood described as anxious. His affect was odd and subdued. Thought process was linear but superficial. Thought content: Patient endorsed suicidal ideation with no plan. He reported no homicidal ideation. He appeared paranoid and significant ideas of reference with some delusional thinking. He denied auditory hallucinations or visual hallucinations but did appear to be responding to internal stimuli. His attention and concentration were limited and memory appeared mostly reliable but none were formally tested. He is alert and oriented x3. Insight and judgment are impaired. Impulse control was impaired. Vitals/I&O/Wt Last Vital Signs Temp 98.5 F 06/27/24 14:00 Pulse 72 06/27/24 14:00 Resp 16 06/27/24 14:00 BP 113/68 06/27/24 14:00 Pulse Ox 94 06/27/24 14:00 O2 Del Method Room Air 06/27/24 14:00 Data NPU 06/25/24 11:00 06/25/24 11:00 A&P Assessment and plan (1) Psychosis: (2) Suicidal ideation: (3) Episodic methamphetamine abuse: (4) Anxiety and depression: (5) Cannabis abuse: Plan 29-year-old male with a past history of schizophrenia along with polysubstance abuse currently endorsing increased anxiety in the context of some delusions and paranoia. He is requesting medication changes to manage his racing thoughts as well. #1.? Engage patient in individual milieu and group therapy. #2?? Recommend sober living treatment at the highest level of care to which the patient is willing to commit #3??? Increase invega to 6mg daily, d/c zyprexa (patient had not been taking for a month) , continue lexapro 10mg daily. #4?? TO-15 minute checks? #5?? Will attempt to gather collateral information. PDMP PDMP Reviewed: Not Reviewed Involuntary Hold Information 2 Hold Status: Legal Status: 96 Hour Hold Date/Time Hold Expires: 07/01/2024 @ 1025 Attestations NPU 2 Medical Necessity Statement*: Inpatient hospitalization is medically necessary and the clinically appropriate intervention at this time. We will monitor medication to make changes as indicated. Patient's likely length of stay is 4-6 days. Coding Level of Care Code Acute Code for [facility] Fwd Diagnoses Psychosis F29 Suicidal ideation R45.851 Episodic methamphetamine abuse F15.10 Anxiety and depression F41.9; F32.A Cannabis abuse F12.10
[2024-06-27 19:51] VITALS: BP 125/75; PULSE 67; RESP 18; TEMP 36.9; O2SAT 95
[2024-06-27] MEDS: trazodone 50 mg Tablet PO (20:53)
[2024-06-27] MEDS: hyDROXYzine 25 mg Capsule 50 MG PO (20:53)
[2024-06-28] MEDS: OLANZapine 5 mg ODT PO (00:06)
[2024-06-28] MEDS: trazodone 50 mg Tablet PO ×2 (00:06→19:39)
[2024-06-28 06:00] VITALS: BP 113/71; PULSE 68; RESP 17; O2SAT 98
[2024-06-28] MEDS: escitalopram 10 mg Tablet PO (08:30)
[2024-06-28] MEDS: paliperidone ER 6 mg Tablet PO (08:30)
--- NOTE | 2024-06-28 12:43 | P.NPUPN_ITS ---
Subjective NPU 2 Subjective: 29-year-old male with a history of episo dic methamphetamine abuse along with alcohol admitted with increased psychosis and paranoia having reported stopping his antipsychotic medication from more than a month. The patient had endorsed feeling depressed and hopeless. He had stated that overall he was feeling better but continued to ruminate about his thoughts. He had continued to worry about being involved in something Satanic. He still remained uncertain as to whether he wished to [facility] for his active addiction. He reported no side effects from the Invega currently. He had reported that he had some difficulty falling asleep but was agreeable with that trazodone may help him after he had taken 50 mg of trazodone twice last night. Mental Status Exam 2 MSE Comments: This is a tall slender well-nourished well-developed white male in hospital scrubs with limited grooming and fair eye contact. No abnormal involuntary motor movements except for mild psychomotor retardation. He was cooperative with exam in mild distress. Speech was decreased in speech rate, monotone in quality and normal in volume. Mood described as anxious. His affect was odd and subdued. Thought process was linear but superficial. Thought content: Patient endorsed suicidal ideation with no plan. He reported no homicidal ideation. He appeared paranoid and significant ideas of reference with some delusional thinking. He denied auditory hallucinations or visual hallucinations but did appear to be responding to internal stimuli. His attention and concentration were limited and memory appeared mostly reliable but none were formally tested. He is alert and oriented x3. Insight and judgment are impaired. Impulse control was impaired. Vitals/I&O/Wt Last Vital Signs Temp 98.4 F 06/27/24 19:51 Pulse 68 06/28/24 06:00 Resp 17 06/28/24 06:00 BP 113/71 06/28/24 06:00 Pulse Ox 98 06/28/24 06:00 O2 Del Method Room Air 06/27/24 14:00 Weight last 48 hrs Weight 115.666 kg Data NPU 06/25/24 11:00 06/25/24 11:00 A&P Assessment and plan (1) Psychosis: (2) Suicidal ideation: (3) Episodic methamphetamine abuse: (4) Anxiety and depression: (5) Cannabis abuse: Plan 29-year-old male with a past history of schizophrenia along with polysubstance abuse currently endorsing increased anxiety in the context of some delusions and paranoia. He is requesting medication changes to manage his racing thoughts as well. #1.? Engage patient in individual milieu and group therapy. #2?? Recommend sober living treatment at the highest level of care to which the patient is willing to commit #3??? Continue invega to 6mg daily and increase lexapro to 20mg daily. #4?? TO-15 minute checks? #5?? Will attempt to gather collateral information. PDMP PDMP Reviewed: Not Reviewed Involuntary Hold Information 2 Hold Status: Legal Status: 96 Hour Hold Date/Time Hold Expires: 07/01/2024 @ 1025 Attestations NPU 2 Medical Necessity Statement*: Inpatient hospitalization is medically necessary and the clinically appropriate intervention at this time. We will monitor medication to make changes as indicated. Patient's likely length of stay is 4-6 days. Coding Level of Care Code Acute Code for [facility] Fwd Diagnoses Psychosis F29 Suicidal ideation R45.851 Episodic methamphetamine abuse F15.10 Anxiety and depression F41.9; F32.A Cannabis abuse F12.10
[2024-06-28 14:00] VITALS: BP 132/72; PULSE 82; RESP 16; TEMP 37.2; O2SAT 97
[2024-06-28 19:35] VITALS: BP 116/70; PULSE 71; RESP 18; TEMP 37.3; O2SAT 95
[2024-06-29 06:00] VITALS: BP 124/75; PULSE 73; RESP 16; O2SAT 96
[2024-06-29] MEDS: escitalopram 10 mg Tablet PO (08:29)
[2024-06-29] MEDS: paliperidone ER 6 mg Tablet PO (08:29)
--- NOTE | 2024-06-29 13:46 | W.PM.NPUPNS ---
Subjective NPU Subjective: 29-year-old male with a history of episodic methamphetamine abuse along with alcohol admitted with increased psychosis and paranoia having reported stopping his antipsychotic medication from more than a month prior to admission. The patient had reported feeling less depressed. He had stated that he had been less preoccupied by his thoughts and reported having less frequent thoughts about Satan and the music industry being influenced by Satan it is. The patient reported adequate sleep. He had remained isolative in his room. He still reported that he was uncertain as to whether he would return to [facility] but was unable to describe why it would be difficult for him to return there again other than stating that he appreciated being left alone here to his thoughts. He had reported adequate sleep. He had reported that he was feeling less depressed although he reported having some fleeting suicidal thoughts briefly today. Mental Status Exam MSE Comments: This is a tall slender well-nourished well-developed white male in hospital scrubs with limited grooming and fleeting eye contact. No abnormal involuntary motor movements were appreciated except for mild psychomotor retardation. He was cooperative with exam in mild distress. Speech was decreased in rate, monotone in quality and normal in volume. Mood described as anxious. His affect remained odd and subdued. Thought process was linear but superficial. Thought content: Patient endorsed fleeting suicidal ideation. He reported no homicidal ideation. He appeared paranoid and significant ideas of reference with some delusional thinking. He denied auditory hallucinations or visual hallucinations but did appear to be responding to internal stimuli. His attention and concentration were limited and memory appeared mostly reliable but none were formally tested. He is alert and oriented x3. Insight and judgment are impaired. Impulse control was impaired. Vitals/I&O/Wt Last Vital Signs Temp 99.1 F 06/28/24 19:35 Pulse 73 06/29/24 06:00 Resp 16 06/29/24 06:00 BP 124/75 06/29/24 06:00 Pulse Ox 96 06/29/24 06:00 O2 Del Method Room Air 06/28/24 14:00 Weight last 48 hrs Weight 115.666 kg Data NPU 06/25/24 11:00 06/25/24 11:00 A&P Assessment and plan (1) Psychosis: (2) Suicidal ideation: (3) Episodic methamphetamine abuse: (4) Anxiety and depression: (5) Cannabis abuse: Plan 29-year-old male with a past history of schizophrenia along with polysubstance abuse currently endorsing increased anxiety in the context of some delusions and paranoia. He is requesting medication changes to manage his racing thoughts as well. #1.? Engage patient in individual milieu and group therapy. #2?? Recommend sober living treatment at the highest level of care to which the patient is willing to commit #3??? Continue invega to 6mg daily and increase lexapro to 20mg daily. #4?? TO-15 minute checks? #5?? Will attempt to gather collateral information. PDMP PDMP Reviewed: Not Reviewed Involuntary Hold Information Hold Status: Legal Status: 96 Hour Hold Date/Time Hold Expires: 07/01/2024 @ 1025 Attestations NPU Medical Necessity Statement*: Inpatient hospitalization is medically necessary and the clinically appropriate intervention at this time. We will monitor medication to make changes as indicated. Patient's likely length of stay is 3-5 days. Coding Level of Care Code Acute Code for [facility] Fwd Diagnoses Psychosis F29 Suicidal ideation R45.851 Episodic methamphetamine abuse F15.10 Anxiety and depression F41.9; F32.A Cannabis abuse F12.10
[2024-06-29 14:00] VITALS: BP 128/77; PULSE 68; RESP 18; TEMP 37.2; O2SAT 95
[2024-06-29 19:29] VITALS: BP 115/73; PULSE 71; RESP 18; TEMP 37; O2SAT 96
[2024-06-29] MEDS: trazodone 50 mg Tablet PO (20:28)
[2024-06-30 06:00] VITALS: BP 110/75; PULSE 82; RESP 16; TEMP 36.7; O2SAT 95
[2024-06-30] MEDS: paliperidone ER 6 mg Tablet PO (08:39)
[2024-06-30] MEDS: escitalopram 10 mg Tablet 20 MG PO (08:39)
--- NOTE | 2024-06-30 12:10 | P.NPUPN_ITS ---
Subjective NPU 2 Subjective: 29-year-old male with a history of episo dic methamphetamine abuse along with alcohol admitted with increased psychosis and paranoia having reported stopping his antipsychotic medication from more than a month prior to admission. The patient reported that he had felt less distracted by. He reported that he continued to think about whether he could return to [facility] to help with managing his addiction. He had reported struggles with managing his thoughts but stated that he was feeling better. He reported that his thoughts did not appear to be racing as much but still stated that he was not back to his previous level in regards to mood and energy. Patient had struggled with completion of activities of daily living but expressed interest in showering today for the first time in several days. He reports having less suicidal thoughts. He reported sleep continuity disruption. Mental Status Exam 2 MSE Comments: This is a tall slender well-nourished well-developed white male in hospital scrubs with limited grooming and fleeting eye contact. No abnormal involuntary motor movements were appreciated except for mild psychomotor retardation. He was cooperative with exam in mild distress. Speech was decreased in rate, monotone in quality and normal in volume. Mood described as anxious. His affect remained odd and subdued. Thought process was linear and logical today. Thought content: Patient denied suicidal ideation. He reported no homicidal ideation. He appeared less paranoid with no ideas of reference today. He denied auditory hallucinations or visual hallucinations but did appear to be responding to internal stimuli. His attention and concentration were limited and memory appeared mostly reliable but none were formally tested. He is alert and oriented x3. Insigh was improving and judgment was improving as well. Impulse control appeared limited. Vitals/I&O/Wt Last Vital Signs Temp 98.1 F 06/30/24 06:00 Pulse 82 06/30/24 06:00 Resp 16 06/30/24 06:00 BP 110/75 06/30/24 06:00 Pulse Ox 95 06/30/24 06:00 O2 Del Method Room Air 06/28/24 14:00 Data NPU 06/25/24 11:00 06/25/24 11:00 A&P Assessment and plan (1) Psychosis: (2) Suicidal ideation: (3) Episodic methamphetamine abuse: (4) Anxiety and depression: (5) Cannabis abuse: Plan 29-year-old male with a past history of schizophrenia along with polysubstance abuse currently endorsing increased anxiety in the context of some delusions and paranoia. He is requesting medication changes to manage his racing thoughts as well. #1.? Engage patient in individual milieu and group therapy. #2?? Recommend sober living treatment at the highest level of care to which the patient is willing to commit. #3??? Continue invega to 6mg daily and continue lexapro to 20mg daily. Increase trazodone 75mg at night. #4?? TO-15 minute checks. ? #5?? Will attempt to gather collateral information. PDMP PDMP Reviewed: Not Reviewed Involuntary Hold Information 2 Hold Status: Legal Status: 96 Hour Hold Date/Time Hold Expires: 07/01/2024 @ 1025 Attestations NPU 2 Medical Necessity Statement*: Inpatient hospitalization is medically necessary and the clinically appropriate intervention at this time. We will monitor medication to make changes as indicated. Patient's likely length of stay is 3-5 days. Coding Level of Care Code Acute Code for [facility] Fwd Diagnoses Psychosis F29 Suicidal ideation R45.851 Episodic methamphetamine abuse F15.10 Anxiety and depression F41.9; F32.A Cannabis abuse F12.10
[2024-06-30 14:00] VITALS: BP 110/69; PULSE 70; RESP 18; TEMP 36.7; O2SAT 95
[2024-06-30] MEDS: ibuprofen 600 mg Tablet PO (17:05)
[2024-06-30 19:54] VITALS: BP 115/69; PULSE 64; RESP 18; TEMP 37; O2SAT 96
[2024-06-30] MEDS: trazodone 50 mg Tablet 75 MG PO (20:59)
[2024-07-01 06:00] VITALS: BP 120/73; PULSE 68; RESP 16; O2SAT 97
[2024-07-01] MEDS: escitalopram 10 mg Tablet 20 MG PO (08:28)
[2024-07-01] MEDS: paliperidone ER 6 mg Tablet PO (08:28)
--- NOTE | 2024-07-01 13:04 | P.NPUPN_ITS ---
Subjective NPU 2 Subjective: 29-year-old male with a history of episo dic methamphetamine abuse along with alcohol admitted with increased psychosis and paranoia having reported stopping his antipsychotic medication from more than a month prior to admission. The patient reported no side effects from his medication. He stated that he was starting to feel better. Patient was agreeable to returning to [facility]. He reported that he felt calmer and stated that his thoughts were not racing. He reports improved sleep with the addition of trazodone. Mental Status Exam 2 MSE Comments: This is a tall slender well-nourished well-developed white male in hospital scrubs with limited grooming and fleeting eye contact. No abnormal involuntary motor movements were appreciated except for mild psychomotor retardation. He was cooperative with exam in mild distress. Speech was decreased in rate, monotone in quality and normal in volume. Mood described as better. His affect remained odd and subdued. Thought process was linear and logical today. Thought content: Patient denied suicidal ideation. He reported no homicidal ideation. He appeared less paranoid with no ideas of reference today. He denied auditory hallucinations or visual hallucinations and did not appear to be responding to internal stimuli. His attention and concentration were limited and memory appeared mostly reliable but none were formally tested. He is alert and oriented x3. Insight was improving and judgment was improving as well. Impulse control appeared limited. Vitals/I&O/Wt Last Vital Signs Temp 98.6 F 06/30/24 19:54 Pulse 68 07/01/24 06:00 Resp 16 07/01/24 06:00 BP 120/73 07/01/24 06:00 Pulse Ox 97 07/01/24 06:00 O2 Del Method Room Air 06/28/24 14:00 Data NPU 06/25/24 11:00 06/25/24 11:00 A&P Assessment and plan (1) Psychosis: (2) Suicidal ideation: (3) Episodic methamphetamine abuse: (4) Anxiety and depression: (5) Cannabis abuse: Plan 29-year-old male with a past history of schizophrenia along with polysubstance abuse currently endorsing increased anxiety in the context of some delusions and paranoia. He is requesting medication changes to manage his racing thoughts as well. #1.? Engage patient in individual milieu and group therapy. #2?? Recommend sober living treatment at the highest level of care to which the patient is willing to commit. #3??? Continue invega to 6mg daily and continue lexapro to 20mg daily. Continue trazodone 75mg at night. #4?? TO-15 minute checks. ? #5?? Likely transfer back to [facility] for further treatment of addiction tommorow. PDMP PDMP Reviewed: Not Reviewed Involuntary Hold Information 2 Hold Status: Legal Status: 96 Hour Hold Date/Time Hold Expires: 07/01/2024 @ 1025 Attestations NPU 2 Medical Necessity Statement*: Inpatient hospitalization is medically necessary and the clinically appropriate intervention at this time. We will monitor medication to make changes as indicated. Patient's likely length of stay is 1-2 days. Coding Level of Care Code Acute Code for g Fwd Diagnoses Psychosis F29 Suicidal ideation R45.851 Episodic methamphetamine abuse F15.10 Anxiety and depression F41.9; F32.A Cannabis abuse F12.10
[2024-07-01 14:00] VITALS: BP 107/66; PULSE 98; RESP 17; TEMP 37.4; O2SAT 97
[2024-07-01 20:32] VITALS: PULSE 66; RESP 18; O2SAT 96
[2024-07-01] MEDS: trazodone 50 mg Tablet 75 MG PO (21:03)
[2024-07-02 06:00] VITALS: BP 90/56; PULSE 68; RESP 16; O2SAT 95
[2024-07-02] MEDS: paliperidone ER 6 mg Tablet PO (08:37)
[2024-07-02] MEDS: escitalopram 10 mg Tablet 20 MG PO (08:37)
[2024-07-02 10:35] VITALS: BP 90/56; PULSE 68; RESP 16; O2SAT 95
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
--- NOTE | 2024-07-02 11:53 | PC.NURSE ---
called [facility] pharmacy at [phone] for refill on medications to be sent to philip fajardo.
== END 2024-07-02 11:54 | disposition home or self-care (01) | DRG 885 ==
LOC: ER 11:15 → NP 12:24
PROVIDERS: Admitting Provider Psychiatry & Neurology Psychiatry; Emergency Provider Family Medicine; Visit Provider Psychiatry & Neurology Psychiatry
DX: F20.9 Schizophrenia, unspecified (principal); R45.851 Suicidal ideations; F15.10 Other stimulant abuse, uncomplicated; F41.9 Anxiety disorder, unspecified; F32.A Depression, unspecified; F12.10 Cannabis abuse, uncomplicated; T50.916A Underdosing of multiple unspecified drugs, medicaments and biological substances, initial encounter; Z91.148 Patient's other noncompliance with medication regimen for other reason
CPT/HCPCS: 36415; 80053; 80306; 80307; 81001; 85025; 96360; 97150; 97165; 99285; J7030; J9999

== ENCOUNTER 2024-10-13 17:46 | Emergency (ER) | payer MEDICAID, SELFPAY ==
--- OUTSIDE RECORDS SUMMARY | 2020-08-09 04:47 | XMS_ITS | Continuity of Care Document ---
Author Organization [facility] Address [address] [address] Phone Care Team Providers Care Mechanical Engineering Teacher Name Role Phone Dunia Love MD Unavailable Unavailable Allergies, Adverse Reactions, Alerts Substance Reaction Status Criticality No Known Allergies Active No Inform ation Medications Medication Instructions Dosage Effective Dates (start - stop) Status Comments triamcinolone acetonide 0.1 % topical cream apply by topical route 2 times every day a thin layer to the affected area(s) as needed. 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 [address] [place] [address], [id number] , . tel:+ [phone] OFFICE/OUTPA TIENT VISIT, EST [facility], [address] [place] [address], [id number] , tel:[phone] [facility] Medical Patient wants Ivermectin for ring worm and possible sca (chief complaint) PsoriasisHomele ssness 1 Ivan Duque. [address] [place] [address], [id number] , . tel:[phone] Referring Provider: Dunia Love, [address] [place] [address], [id number] . tel:[phone] [facility], [address] [place] [address], [id number] , tel:+ [phone] [facility] Not Listed (chief complaint) No Information 1 Ivan Duque. [address] [place] [address], [id number] , . tel:[phone] Referring Provider: Dunia Love, [address] [place] [address], [id number] . tel:[phone] [facility], [address] [place] [address], [id number] , tel:+ [phone] [facility] No Information 1 Ivan Duque. [address] [place] [address], [id number] , . tel:[phone] Referring Provider: Dunia Love, [address] [place] [address], [id number] . tel:[phone] [facility], [address] [place] [address], [id number] , tel:+ [phone] [facility] No Information 1 Liv Jama. [address] [place] [address], [id number] . tel:+ [phone] Family History Family Member Type Diagnosis Age At Onset Father Problem (finding) Mental illness Payers Payer name Insurance type Covered republican ID Authoriza tion(s) No Information Social History Type Description Quantity Date Captured Comments Alcohol Use Details Unknown Caffeine Use Details Unknown Tobacco Use Status Smoking Status No Information Sex Male Sexual Orientation Don't Know Gender Identity Male Keith-[birth year]21 Chief Complaint And Reason For Visit No Information Reason For Referral Reason For Referral No Information Plan Of Treatment Date Type Action Status Goal Depression screening. Due on due Goal Influenza vaccine. Due on due Goal Tdap. Due on due Goal Td vaccine. Due on due Goal Td vaccine. Due on due Goal Depression screening. Due on due Goal Influenza vaccine. Due on due Goal Tdap. Due on due Goal Tobacco cessation counseling completed Referral Ordered: Referrals: Dermatology. Evaluate and treat ordered History Of Present Illness Encounter Date Complaint History Of Prese nt Illness Patient wants Iverme ctin for ring worm and possible sca 25 y/o male whom I seen today for the first time for itchy rashes on the entire abdominal skin and back for a year. Has been diagnosed with psoriasis since he was 3 years old. He has not been taking any med currently for this. He request Ivermectin for ring worms and possible scabies . Not Listed Functional Status Date Functional Assessmen t No Information Instructions Date Instruction Additional Infor shemar Triamcinolone cream. Refer to de rmatologist. Related to Psoriasis Assessments Type Assessment Date No Information Patient Care Teams Name Effective Dates (start - stop) Status Members No Information
[2024-10-13] VITALS (7 sets, daily range): BP systolic 103–135; BP diastolic 65–91; PULSE 66–103; RESP 16–20; TEMP 36.7; O2SAT 93–99; BMI 29.0
--- NOTE | 2024-10-13 17:49 | ECG_ITS ---
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 Measurements Intervals [place] Rate: 68 P: 67 MN: 146 QRS: 77 QRSD: 85 T: 68 QT: 391 QTc: 416 Interpretive Statements SINUS RHYTHM No previous ECG available for comparison Electronically Signed On 10-15-2024 08:59:21 CDT by Ruy Rosa M.D. [email or web address]
[2024-10-13] MEDS: ondansetron 2 mg/ML SDV 2 mL 4 MG IVP (18:25)
--- NOTE | 2024-10-13 18:29 | CTR_ITS ---
PROCEDURE INFORMATION: Exam: CT Abdomen And Pelvis With Contrast Exam date and time: 10/13/2024 7:08 PM Age: 29 years old Clinical indication: Abdominal pain; Epigastric; Additional info: N/v epigastric pain TECHNIQUE: Imaging protocol: Computed tomography of the abdomen and pelvis with contrast. Radiation optimization: All CT scans at this facility use at least one of these dose optimization techniques: automated exposure control; mA and/or kV adjustment per patient size (includes targeted exams where dose is matched to clinical indication); or iterative reconstruction. Contrast material: OMNIPAQUE 350; Contrast volume: 100 ml; Contrast route: INTRAVENOUS (IV); COMPARISON: No relevant prior studies available. RADIATION DOSE METRICS: Total DLP (mGy-cm): 837.03 FINDINGS: Lungs: Several 2-3 mm pulmonary nodules are seen in the lung bases bilaterally. Liver: Subcentimeter hypodensity in the left hepatic lobe is too small to characterize but likely represents a cyst or tiny hemangioma. No suspicious liver lesion. Gallbladder and biliary ducts: Normal. No calcified stones. No ductal dilation. Pancreas: Normal. No ductal dilation. Spleen: Normal. No splenomegaly. Adrenal glands: Normal. No mass. Kidneys and ureters: Normal. No hydronephrosis. Stomach and bowel: Colon is underdistended, limiting evaluation. However, there appears to be mild mucosal thickening within the transverse, descending, and sigmoid colon. Areas of mild gastric wall thickening are also seen. No bowel obstruction. Appendix: No evidence of appendicitis. Intraperitoneal space: Unremarkable. No free air. No significant fluid collection. Vasculature: Unremarkable. No abdominal aortic aneurysm. Lymph nodes: Unremarkable. No enlarged lymph nodes. Urinary bladder: Unremarkable as visualized. Reproductive: Unremarkable as visualized. Bones/joints: Unremarkable. No acute fracture. Soft tissues: Small fat containing umbilical hernia. CT/CT abdomen pelvis w con* [id number] IMPRESSION: 1. Mild gastric wall thickening may represent gastritis. 2. Mucosal thickening throughout the colon is likely exaggerated by underdistention. Mild infectious/inflammatory colitis not excluded. 3. Scattered pulmonary micronodules in the lung bases bilaterally. If the patient does not have known cancer, follow up should be based on clinical information because of the low risk of cancer in this age group. (Reference: Ivania) REFERENCES: Ivania Olson et al. Guidelines for Management of Incidental Pulmonary Nodules Detected on CT Images: From the Fleischner Society 2017. Radiology. 2017;284(1):228-243.
[2024-10-13 18:43] LABS: Hematocrit 48.1 % (37-53); Hemoglobin 16.40 g/dL (11.27-16.99); Mean Corpuscular HGB Conc 34.1 g/dL (30-55); Mean Corpuscular Hemoglobin 29.4 pg (27-33); Mean Corpuscular Volume 86.4 fl (82-101); Nucleated Red Blood Cells % 0 %; Platelet Count 277 10^3/cmm (157-399); Red Blood Count 5.57 10^6/uL (3.85-5.65); White Blood Count 10.21 10^3/uL (3.29-11.43)
[2024-10-13 18:53] LABS: Alanine Aminotransferase 14 U/L (0-41); Albumin Level 5.1 g/dL (3.5-5.2); Alkaline Phosphatase 106 U/L (40-130); Anion Gap 24.2 (5-19); Aspartate Amino Transferase 18 U/L (0-40); Blood Urea Nitrogen 23 mg/dL (6-20); Calcium 10.2 mg/dL (8.5-10.5); Carbon Dioxide 18 mmol/L (22-29); Chloride 102 mmol/L (98-107); Creatinine Clr Calc Pharmacy 95.0030; Globulin 3.0 g/dL (1.3-4.6); Glucose 126 mg/dL (65-115); Lipase 24 U/L (13-60); Osmolality Calculated 295 mOsm/kg (285-295); Potassium 4.2 mmol/L (3.5-5.1); Sodium 140 mmol/L (136-145); Total Protein 8.1 g/dL (6.6-8.7)
--- NOTE | 2024-10-13 18:55 | W.ED.NAVMDI ---
HPI - Nausea/Vomiting/Diarrhea General: Chief complaint: Nausea/Vomiting/Diarrhea Stated complaint: N/V Time Seen by Provider: 10/13/24 17:48 History of Present Illness: Patient is a 29-year-old male, unhoused, seen for abdominal pain, nausea, vomiting, and diarrhea. He is concerned because at 1 point he was told he has HIV although more recently he was told that his test was undetectable and a prior diagnosis of paranoid schizophrenia presents with roughly four months of progressive gastrointestinal distress. They report persistent vomiting, severe stomach discomfort described as a bad overall gastric sensation, and frequent dry-heaving. Ingestion of any fluid, including water, triggers immediate nausea; cold water transiently ?cools? the stomach but does not relieve the pain. Associated watery diarrhea is present. Symptoms began intermittently about four months ago and have intensified over the past month, now preventing oral intake and leading to marked fatigue and inability to walk far. The patient recalls previous emergency evaluations during episodes of heat exposure while unhoused. They worry about kidney failure after a prior clinician mentioned abnormal kidney tests. They deny esophageal burning but are concerned about possible esophageal or gastric pathology (ulcer) after ?hearing from the spirit? about organ failure. Mental health history includes auditory perceptions of ?spirits,? prior hospitalization, and a label of paranoid schizophrenia. The patient denies current prescription medications and is seeking relief for nausea, pain, and overwhelming intrusive thoughts. They request advice on fluids that may soothe the stomach. Related Data Previous Rx's ?Medication ?Instructions ?Recorded escitalopram oxalate 20 mg tablet 20 mg PO DAILY 30 days #30 tabs 07/01/24 paliperidone 6 mg tablet,extended 6 mg PO DAILY 30 days #30 tabs 07/01/24 release 24 hr trazodone 150 mg tablet 75 mg (1/2 x 150 mg) PO DAILY #15 07/01/24 tabs ondansetron 4 mg disintegrating 4 mg PO Q8H PRN nausea and 10/14/24 tablet vomiting 10 days #20 tabs Allergies Allergy/AdvReac Type Severity Reaction Status Date / Time No Known Allergies Allergy Verified 07/08/24 11:49 [facility] ED PFS: Medical History (Updated 10/14/24 @ 02:35 by Crescencio Nair MD) Generalized anxiety disorder Major depressive disorder, recurrent, moderate Nicotine use disorder Cannabis use disorder Methamphetamine use disorder, moderate, dependence On combination antipsychotic drug therapy History of schizophrenia Anxiety and depression Psychiatric care Schizophrenia Social History Smoking and tobacco/nicotine status: current some day tobacco/nicotine user Alcohol intake: unknown Substance/Drug Use: unknown Physical Exam Const: COMMON NORMALS: no acute distress, patient oriented x3 and alert HENMT: COMMON NORMALS: normocephalic and atraumatic HEAD & SCALP: normocephalic and atraumatic Eye: COMMON NORMALS: Equal, round and reactive pupils present, EOMs intact bilaterally and no scleral icterus PUPIL: Yes Equal, round and reactive pupils present Resp: COMMON NORMALS: normal respiratory effort and No retractions Cardio: COMMON NORMALS: regular rate, regular rhythm and No murmurs present (Cardio) RATE: regular rate RHYTHM: regular rhythm GI: OTHER: Soft and nonperitoneal, no focal tenderness. Normal bowel sounds. Neuro: COMMON NORMALS: patient oriented x3 SENSORIUM/ORIENTATION: Yes alert Psych: OTHER: Paranoid, no SI or HI, frequently distracted hearing the spirits interject during our conversation. They are not persecutory. Magical thoughts, receiving messages from the TV and from songs played backwards with heightened meaning only for him. Skin: COMMON NORMALS: no rashes or lesions noted GENERAL SKIN EXAM: no rashes or lesions noted Course Vital Signs: Vital signs: Vital Signs Temperature 98.1 F 10/13/24 17:51 Pulse Rate 84 10/14/24 02:46 Respiratory Rate 16 10/14/24 01:00 Blood Pressure 124/51 10/14/24 02:46 Pulse Oximetry 95 10/14/24 02:46 Oxygen Delivery Me thod Room Air 10/13/24 17:51 MDM - Nausea/Vomiting/Diarrhea Medical Decision Making In summary, patient is a 29-year-old male seen for nausea, vomiting, and abdominal pain. He has been diagnosed with paranoid schizophrenia and I believe this to be a true diagnosis though he does not think that his thought patterns are abnormal nor that the spirits he constantly hears constitutes auditory hallucinations. After receiving IV Haldol, the he is much less paranoid. With Zofran, he is now able to eat and drink without difficulty. Labs show very mild FRIDA and CT of the abdomen pelvis shows nothing acute. I suspect he is likely suffering from a viral inflaming his gastrointestinal structures causing his symptoms. He was observed in the emergency department for several hours during which time he had no more vomiting. He received 2 L of IV fluid. He will be discharged in stable and improved condition. Lab Data 10/13/24 18:07 10/13/24 22:25 Radiology Impressions Abdomen/Pelvis CT 10/13/24 18:29 IMPRESSION: 1. Mild gastric wall thickening may represent gastritis. 2. Mucosal thickening throughout the colon is likely exaggerated by underdistention. Mild infectious/inflammatory colitis not excluded. 3. Scattered pulmonary micronodules in the lung bases bilaterally. If the patient does not have known cancer, follow up should be based on clinical information because of the low risk of cancer in this age group. (Reference: Ivania) REFERENCES: Ivania Olson, et al. Guidelines for Management of Incidental Pulmonary Nodules Detected on CT Images: From the Fleischner Society 2017. Radiology. 2017;284(1):228-243. Laboratory Results WBC 10.21 10^3/uL (3.29-11.43) 10/13/24 18:07 RBC 5.57 10^6/uL (3.85-5.65) 10/13/24 18:07 Hgb 16.40 g/dL (11.27-16.99) 10/13/24 18:07 Hct 48.1 % (37-53) 10/13/24 18:07 MCV 86.4 fl (82-101) 10/13/24 18:07 MCH 29.4 pg (27-33) 10/13/24 18:07 MCHC 34.1 g/dL (30-55) 10/13/24 18:07 RDW 13.5 % (12.1-15.1) 10/13/24 18:07 Plt Count 277 10^3/cmm (157-399) 10/13/24 18:07 MPV 10.1 fL (7.4-10.4) 10/13/24 18:07 Neut % (Auto) 82.9 % 10/13/24 18:07 Lymph % (Auto) 10.6 % 10/13/24 18:07 [place] % (Auto) 5.8 % 10/13/24 18:07 Eos % (Auto) 0.0 % 10/13/24 18:07 Baso % (Auto) 0.4 % 10/13/24 18:07 Neut # (Auto) 8.47 10^3/uL (1.8-7.7) H 10/13/24 18:07 Lymph # (Auto) 1.1 10^3/uL (0.8-4.8) 10/13/24 18:07 [place] # (Auto) 0.6 10^3/uL (0.2-0.9) 10/13/24 18:07 Eos # (Auto) 0.0 10^3/uL (0.0-0.8) 10/13/24 18:07 Baso # (Auto) 0.0 10^3/uL (0.0-0.1) 10/13/24 18:07 Nucleated RBC % (auto) 0 % 10/13/24 18:07 Nucleated RBCs # 0.0 /100WBC 10/13/24 18:07 Sodium 138 mmol/L (136-145) 10/13/24 22:25 Potassium 3.8 mmol/L (3.5-5.1) 10/13/24 22:25 Chloride 100 mmol/L (98-107) 10/13/24 22:25 Carbon Dioxide 22 mmol/L (22-29) 10/13/24 22:25 Anion Gap 19.8 (5-19) H 10/13/24 22:25 BUN 19 mg/dL (6-20) 10/13/24 22:25 Creatinine 1.2 mg/dL (0.7-1.2) 10/13/24 22:25 GFR Calculation 70.6 mL/min (90-130) L 10/13/24 22:25 Glucose 121 mg/dL (65-115) H 10/13/24 22:25 Calculated Osmolality 290 mOsm/kg (285-295) 10/13/24 22:25 Calcium 8.8 mg/dL (8.5-10.5) 10/13/24 22:25 Total Bilirubin 1.3 mg/dL (0.15-1.2) H 10/13/24 18:07 AST 18 U/L (0-40) 10/13/24 18:07 ALT 14 U/L (0-41) 10/13/24 18:07 Alkaline Phosphatase 106 U/L (40-130) 10/13/24 18:07 Creatine Kinase 496 U/L (39-308) H* 10/13/24 18:07 Total Protein 8.1 g/dL (6.6-8.7) 10/13/24 18:07 Albumin 5.1 g/dL (3.5-5.2) 10/13/24 18:07 Globulin 3.0 g/dL (1.3-4.6) 10/13/24 18:07 Lipase 24 U/L (13-60) 10/13/24 18:07 Urine Color Yellow (Yellow) 10/13/24 22:52 Urine Appearance Clear (CLEAR) 10/13/24 22:52 Urine pH 5.5 (5-7) 10/13/24 22:52 Ur Specific [place] 1.096 (1.005-1.030) H 10/13/24 22:52 Urine Protein 1+ (Negative) A 10/13/24 22:52 Urine Glucose (UA) Negative (Normal) 10/13/24 22:52 Urine Ketones 2+ (Negative) H 10/13/24 22:52 Urine Blood Negative (Negative) 10/13/24 22:52 Urine Nitrate Negative (Negative) 10/13/24 22:52 Urine Bilirubin Negative (Negative) 10/13/24 22:52 Urine Urobilinogen 1.0 mg/dL (Negative) 10/13/24 22:52 Ur Leukocyte Esterase Negative (Negative) 10/13/24 22:52 Urine RBC 0-2 /hpf (0-2) 10/13/24 22:52 Urine WBC 0-5 /hpf (0-5) 10/13/24 22:52 Ur Squamous Epith Cells 0-5 /hpf (0-5) 10/13/24 22:52 Amorphous Sediment Not Reportable 10/13/24 22:52 Urine Bacteria None seen /hpf (NONE) 10/13/24 22:52 Hyaline Casts 0.40 /lpf 10/13/24 22:52 All radiology interpretation(s) finalized by discharge EKG Data EKG 1: Interpretation: Time?1836?normal sinus rhythm, rate of 68, no ST segment elevation or depression, no T wave inversions, QTc = 408 Discharge Plan Discharge Patient Disposition: Home Clinical Impression: Acute dehydration, Nausea & vomiting Condition: Stable Prescriptions: New ondansetron 4 mg tablet,disintegrating 4 mg PO Q8H PRN (Reason: nausea and vomiting) 10 Days Qty: 20 0RF No Action paliperidone 6 mg Tablet Extended Release 24hr 6 mg PO DAILY 30 Days Qty: 30 1RF escitalopram oxalate 20 mg tablet 20 mg PO DAILY 30 Days Qty: 30 1RF trazodone 150 mg tablet 75 mg PO DAILY Qty: 15 1RF Discharge Orders: Discharge ED (Routine); Ordered 10/14/24 Ordered By: Crescencio Nair Discharge Diet: Advance as tolerated Discharge Activity: Increase activity as tolerated Patient Instructions: Acute Nausea and Vomiting (ED), Patient Portal & Kwasi Instructions Activity Restrictions/Additional Instructions: Your blood tests show mild dehydration. CT scan does not show anything requiring hospitalization or surgery. Please take the prescribed Zofran as needed for ongoing nausea and vomiting and your symptoms should get better in the next few days Print Language: Stateless Coding Level of Care Code ED Improvement Lead for Naey Keene
[2024-10-13] MEDS: iohexol 350 mg/mL 500 mL Btl (per mL) IV (19:10)
[2024-10-13] MEDS: diphenhydrAMINE 50 mg/mL SDV 1mL 25 MG IVP (19:15)
[2024-10-13] MEDS: haloperidol inj 5 mg/mL INJ 1 mL IVP (19:17)
[2024-10-13] MEDS: lidocaine 2% viscous 15 ML, aluminum-mag hydrox-simethicon 30 ML, sucralfate oral liq 1 GM PO (19:45)
[2024-10-13 22:58] LABS: Anion Gap 19.8 (5-19); Blood Urea Nitrogen 19 mg/dL (6-20); Calcium 8.8 mg/dL (8.5-10.5); Carbon Dioxide 22 mmol/L (22-29); Chloride 100 mmol/L (98-107); Creatinine Clr Calc Pharmacy 110.8369; Glucose 121 mg/dL (65-115); Osmolality Calculated 290 mOsm/kg (285-295); Potassium 3.8 mmol/L (3.5-5.1); Sodium 138 mmol/L (136-145)
[2024-10-13 23:23] LABS: Glucose Urine UA Negative (Normal); Nitrate Urine Negative (Negative)
[2024-10-13 23:28] LABS: Add Urine Microscopic? YES
[2024-10-13 23:30] LABS: Specific Gravity, Urine 1.096 (1.005-1.030)
[2024-10-14] VITALS: BP 109/70; PULSE 65; RESP 16; O2SAT 96
[2024-10-14 01:00] VITALS: BP 134/77; PULSE 73; RESP 16; O2SAT 93
[2024-10-14 02:46] VITALS: BP 124/51; PULSE 84; O2SAT 95
== END 2024-10-14 02:48 | disposition home or self-care (01) ==
PROVIDERS: Family Medicine; Emergency Provider Student in an Organized Health Care Education/Training Program
DX: E86.0 Dehydration (principal); R11.2 Nausea with vomiting, unspecified; Z72.0 Tobacco use
CPT/HCPCS: 36415; 74177; 80048; 80053; 81001; 82550; 83690; 85025; 93005; 96374; 96375; 99285; J1200; J1630; J2405; J7030; J9999

== ENCOUNTER 2025-01-21 17:39 | Emergency (ER) | payer MEDICAID, SELFPAY ==
--- NOTE | 2025-01-21 17:40 | ED.C_ITS ---
HPI - Psych 2 General: Chief Complaint: Psychiatric Symptoms Stated Complaint: 96 Time Seen by Provider: 01/21/25 17:40 History of Present Illness: 29-year-old man who presents emergency r oom on a 96-hour court ordered hold. He recently went to [facility] and he was threatening to harm others and to harm himself in [facility]. He is placed on a 96-hour hold. Very flat affect. He admits to taking his gun to hurt himself and others. Related Data Previous Rx's ?Medication ?Instructions ?Recorded escitalopram oxalate 20 mg tablet 20 mg PO DAILY 30 da ys #30 tabs 07/01/24 paliperidone 6 mg tablet,extended 6 mg PO DAILY 30 day s #30 tabs 07/01/24 release 24 hr trazodone 150 mg tablet 75 mg (1/2 x 150 mg) PO ALON Y #15 07/01/24 tabs Allergies Allergy/AdvReac Type Severity Reaction Status Date / Time No Known Allergies Allergy Verified 07/08/24 11:49 Review of Systems 2 Narrative: Constitutional symptoms: Negative except as documented in HPI. Skin symptoms: Negative except as documented in HPI. Eye symptoms: Negative except as documented in HPI. ENMT symptoms: Negative except as documented in HPI. Respiratory symptoms: Negative except as documented in HPI. Cardiovascular symptoms: Negative except as documented in HPI. Gastrointestinal symptoms: Negative except as documented in HPI. Genitourinary symptoms: Negative except as documented in HPI. Musculoskeletal symptoms: Negative except as documented in HPI. Neurologic symptoms: Negative except as documented in HPI. Psychiatric symptoms: Negative except as documented in HPI. Endocrine symptoms: Negative except as documented in HPI. PFSH ED 2 PFSH: Medical History (Updated 01/21/25 @ 19:29 by Erin Hope MD) Generalized anxiety disorder Major depressive disorder, recurrent, moderate Nicotine use disorder Cannabis use disorder Methamphetamine use disorder, moderate, dependence On combination antipsychotic drug therapy History of schizophrenia Anxiety and depression Psychiatric care Schizophrenia Social History Smoking and tobacco/nicotine status: current some day tobacco/nicotine user Alcohol intake: unknown Substance/Drug Use: unknown Physical Exam 2 Narrative: EXAM NARRATIVE: General: Alert, no acute distress. Skin: Warm, dry. Head: Normocephalic, atraumatic. Neck: Supple, trachea midline. Eye: Extraocular movements are intact. Ears, nose, mouth and throat: mucosa moist. Cardiovascular: Regular, Normal peripheral perfusion. Respiratory: Lungs are clear to auscultation, respirations are non-labored, breath sounds are equal, Symmetrical chest wall expansion. Gastrointestinal: Soft, Nontender, Non distended Musculoskeletal: Normal ROM, no deformity. Neurological: Alert and oriented, No focal neurological deficit observed. Psychiatric: Cooperative, appropriate mood & affect. Course 2 Vital Signs: Vital signs: Vital Signs Temperature 98.2 F 01/21/25 17:59 Pulse Rate 73 01/21/25 17:59 Respiratory Rate 16 01/21/25 17:59 Blood Pressure 115/74 01/21/25 17:59 Pulse Oximetry 95 01/21/25 17:59 Oxygen Delivery Me thod Room Air 01/21/25 17:59 MDM - Psych Medical Decision Making Differential diagnosis: Patient with reported depression and suicidal ideation. concerns for infection, alcohol intoxication, cardiac issues or other medical problems prior to psychiatric admission. Workup: labwork, ekg ordered to evaluate the pathologies and to clear the patient medically prior to psychiatric admission Lab Review: Laboratory results were reviewed and interpreted by myself the emergency room physician. - Medically cleared. - EKG shows no ischemic changes. - Blood alcohol level is negative, -Tylenol and salicylate levels are negative. ?Urinalysis and drug screen are pending - No anemia. - BUN and creatinine are within normal limits. Consultation: I spoke with Dr. Goncalves who is on-call for psychiatry. He agrees to admission to the psychiatric unit if beds clear up. Admit orders are being placed Assessment and plan: Suicidal ideation Depression Homicidal ideations ?Patient is already on a court ordered 96-hour hold -Admission to neuropsychiatric unit for continued evaluation and treatment. - All lab work was reviewed and interpreted personally by myself, the ER physician - Evaluation and treatment of this problem were appropriate in the emergency setting Lab Data 01/21/25 18:06 01/21/25 18:06 Laboratory Results WBC 7.18 10^3/uL (3.29-11.43) 01/21/25 18:06 RBC 5.19 10^6/uL (3.85-5.65) 01/21/25 18:06 Hgb 15.60 g/dL (11.27-16.99) 01/21/25 18:06 Hct 45.1 % (37-53) 01/21/25 18:06 MCV 86.9 fl (82-101) 01/21/25 18:06 MCH 30.1 pg (27-33) 01/21/25 18:06 MCHC 34.6 g/dL (30-55) 01/21/25 18:06 RDW 12.9 % (12.1-15.1) 01/21/25 18:06 Plt Count 220 10^3/cmm (157-399) 01/21/25 18:06 MPV 9.3 fL (7.4-10.4) 01/21/25 18:06 Neut % (Auto) 73.2 % 01/21/25 18:06 Lymph % (Auto) 19.5 % 01/21/25 18:06 [place] % (Auto) 4.9 % 01/21/25 18:06 Eos % (Auto) 1.5 % 01/21/25 18:06 Baso % (Auto) 0.6 % 01/21/25 18:06 Neut # (Auto) 5.26 10^3/uL (1.8-7.7) 01/21/25 18:06 Lymph # (Auto) 1.4 10^3/uL (0.8-4.8) 01/21/25 18:06 [place] # (Auto) 0.4 10^3/uL (0.2-0.9) 01/21/25 18:06 Eos # (Auto) 0.1 10^3/uL (0.0-0.8) 01/21/25 18:06 Baso # (Auto) 0.0 10^3/uL (0.0-0.1) 01/21/25 18:06 Nucleated RBC % (auto) 0 % 01/21/25 18:06 Nucleated RBCs # 0.0 /100WBC 01/21/25 18:06 Sodium 140 mmol/L (136-145) 01/21/25 18:06 Potassium 4.0 mmol/L (3.5-5.1) 01/21/25 18:06 Chloride 105 mmol/L (98-107) 01/21/25 18:06 Carbon Dioxide 21 mmol/L (22-29) L 01/21/25 18:06 Anion Gap 18.0 (5-19) 01/21/25 18:06 BUN 10 mg/dL (6-20) 01/21/25 18:06 Creatinine 1.1 mg/dL (0.7-1.2) 01/21/25 18:06 GFR Calculation 78.1 mL/min (90-130) L 01/21/25 18:06 Glucose 90 mg/dL (65-115) 01/21/25 18:06 Calculated Osmolality 289 mOsm/kg (285-295) 01/21/25 18:06 Calcium 9.1 mg/dL (8.5-10.5) 01/21/25 18:06 Total Bilirubin 0.4 mg/dL (0.15-1.2) 01/21/25 18:06 AST 12 U/L (0-40) 01/21/25 18:06 ALT 15 U/L (0-41) 01/21/25 18:06 Alkaline Phosphatase 100 U/L (40-130) 01/21/25 18:06 Total Protein 7.2 g/dL (6.6-8.7) 01/21/25 18:06 Albumin 4.5 g/dL (3.5-5.2) 01/21/25 18:06 Globulin 2.7 g/dL (1.3-4.6) 01/21/25 18:06 TSH 1.41 uIU/mL (0.27-4.20) 01/21/25 18:06 Salicylates < 0.3 mg/dL (3-10) L 01/21/25 18:06 Acetaminophen < 5.0 ug/mL (10-30) L 01/21/25 18:06 Ethyl Alcohol < 10 mg/dL (0-10) 01/21/25 18:06 No radiology studies performed this visit Discharge Plan Discharge Patient Disposition: Admitted As Inpatient Clinical Impression: Suicidal ideation, Depression Condition: Stable Coding Level of Care Code ED Woodworking Machine Feeder for Naye Keene
[2025-01-21 17:47] VITALS: BMI 29.7
[2025-01-21 17:59] VITALS: BP 115/74; PULSE 73; RESP 16; TEMP 36.8; O2SAT 95
--- NOTE | 2025-01-21 17:59 | PC.NURSE ---
Pt was read his 96 hour hold rights at this time. Security present.
[2025-01-21 18:17] LABS: Hematocrit 45.1 % (37-53); Hemoglobin 15.60 g/dL (11.27-16.99); Mean Corpuscular HGB Conc 34.6 g/dL (30-55); Mean Corpuscular Hemoglobin 30.1 pg (27-33); Mean Corpuscular Volume 86.9 fl (82-101); Nucleated Red Blood Cells % 0 %; Platelet Count 220 10^3/cmm (157-399); Red Blood Count 5.19 10^6/uL (3.85-5.65); White Blood Count 7.18 10^3/uL (3.29-11.43)
--- NOTE | 2025-01-21 18:30 | ECG_ITS ---
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1995 Requested By: Erin Doyle Order Number: [id number] Ochoa MD: RUBI TONEY Measurements Intervals [place] Rate: 80 P: -9 WV: 142 QRS: -26 QRSD: 77 T: -13 QT: 351 QTc: 406 Interpretive Statements SINUS RHYTHM BORDERLINE LEFT AXIS DEVIATION [QRS AXIS < -20] MODERATE VOLTAGE CRITERIA FOR LVH, CONSIDER NORMAL VARIANT [MEETS CRITERIA IN ONE OF: R(aVL), S(V1), R(V5), R(V5/V6)+S(V1)] Compared to ECG 10/13/2024 18:36:02 No significant changes Electronically Signed On 01-24-2025 23:23:23 CDT by RUBI TONEY [email or web address]
[2025-01-21 19:07] LABS: Acetaminophen < 5.0 ug/mL (10-30); Alanine Aminotransferase 15 U/L (0-41); Albumin Level 4.5 g/dL (3.5-5.2); Alcohol Level < 10 mg/dL (0-10); Alkaline Phosphatase 100 U/L (40-130); Anion Gap 18.0 (5-19); Aspartate Amino Transferase 12 U/L (0-40); Blood Urea Nitrogen 10 mg/dL (6-20); Calcium 9.1 mg/dL (8.5-10.5); Carbon Dioxide 21 mmol/L (22-29); Chloride 105 mmol/L (98-107); Creatinine Clr Calc Pharmacy 122.1615; Globulin 2.7 g/dL (1.3-4.6); Glucose 90 mg/dL (65-115); Osmolality Calculated 289 mOsm/kg (285-295); Potassium 4.0 mmol/L (3.5-5.1); Salicylate < 0.3 mg/dL (3-10); Sodium 140 mmol/L (136-145); Thyroid Stimulating Hormone 1.41 uIU/mL (0.27-4.20); Total Protein 7.2 g/dL (6.6-8.7)
--- NOTE | 2025-01-21 19:32 | XRR_ITS ---
PROCEDURE INFORMATION: Exam: XR Chest Exam date and time: 01/21/2025 7:35 PM Age: 29 years old Clinical indication: Pain; Chest pressure; Additional info: Chest pain TECHNIQUE: Imaging protocol: Radiologic exam of the chest. Views: 1 view. COMPARISON: CT abdomen pelvis w con* [id number] 10/13/2024 7:08 PM FINDINGS: Lungs: Unremarkable. No consolidation. Pleural spaces: Unremarkable. No pleural effusion. No pneumothorax. Heart/Mediastinum: Unremarkable. No cardiomegaly. Bones/joints: Unremarkable. XR/XR chest 1V portable [id number] IMPRESSION: No acute findings.
[2025-01-21 20:09] LABS: Glucose Urine UA Negative (Normal); Nitrate Urine Negative (Negative); Specific Gravity, Urine 1.022 (1.005-1.030)
[2025-01-21 20:16] LABS: PCP Screen Urine Negative (Negative)
[2025-01-21 20:22] LABS: Respiratory Syncytial Virus Ce NEGATIVE (Negative); SARS-CoV-2 PCR NEGATIVE (Negative)
[2025-01-21 20:24] LABS: Add Urine Microscopic? YES
[2025-01-21 21:57] VITALS: BP 132/85; PULSE 82; RESP 17; O2SAT 97
== END 2025-01-21 22:33 | disposition admitted as inpatient to this hospital (09) ==
PROVIDERS: Emergency Provider Emergency Medicine
DX: R45.851 Suicidal ideations (principal); F32.A Depression, unspecified; Z72.0 Tobacco use
CPT/HCPCS: 36415; 71045; 80053; 80306; 80307; 81001; 84443; 85025; 87637; 93005; 99283; J9999